=== PATIENT | female | born 1975 | race Caucasian/White ===

== ENCOUNTER 2017-07-20 11:30 | Outpatient (CLI) | payer MEDICAID ==
[~2017-07-20 11:30] MED LIST: ACET-2119 PO; HYDR-569 PO; LEVO500T2 PO; PANT-47 PO
[2017-07-20] MEDS ORDERED: LIDOcaine 2% 5ml jelly ONE (11:51)
[2017-07-20] MEDS ORDERED: ACET-1059 (12:18)
== END 2017-07-20 12:35 | disposition home or self-care (01) ==
LOC: WOUND CARE 11:30
PROVIDERS: ATTEND Surgery
DX: T81.89XD Other complications of procedures, not elsewhere classified, subsequent encounter (principal); L98.491 Non-pressure chronic ulcer of skin of other sites limited to breakdown of skin; I10 Essential (primary) hypertension; K21.9 Gastro-esophageal reflux disease without esophagitis; F19.10 Other psychoactive substance abuse, uncomplicated; Z90.49 Acquired absence of other specified parts of digestive tract; Z79.01 Long term (current) use of anticoagulants; Z79.899 Other long term (current) drug therapy; Y83.8 Other surgical procedures as the cause of abnormal reaction of the patient, or of later complication, without mention of misadventure at the time of the procedure
CPT/HCPCS: 99215; A6212; A6266

== ENCOUNTER 2017-07-24 09:46 | Day surgery (SDC) | payer MEDICAID ==
[~2017-07-24 09:46] MED LIST changes: +ACET-1059; -HYDR-569 PO
[2017-07-24] MEDS ORDERED: LIDOcaine 2% 5ml jelly ONE (11:22)
[2017-07-24] MEDS ORDERED: HYDR-569 PO (16:00)
== END 2017-07-24 11:57 | disposition home or self-care (01) ==
LOC: WOUND CARE 09:46
PROVIDERS: ATTEND Surgery
DX: T81.89XD Other complications of procedures, not elsewhere classified, subsequent encounter (principal); I10 Essential (primary) hypertension; K21.9 Gastro-esophageal reflux disease without esophagitis; F19.10 Other psychoactive substance abuse, uncomplicated; Z79.01 Long term (current) use of anticoagulants; Z79.899 Other long term (current) drug therapy; Z90.49 Acquired absence of other specified parts of digestive tract; Z86.718 Personal history of other venous thrombosis and embolism; Y83.8 Other surgical procedures as the cause of abnormal reaction of the patient, or of later complication, without mention of misadventure at the time of the procedure
CPT/HCPCS: 97597; A6212

== ENCOUNTER 2017-07-27 08:44 | Outpatient (CLI) | payer MEDICAID ==
[~2017-07-27 08:44] MED LIST changes: +HYDR-569 PO
[2017-07-27] MEDS ORDERED: LIDOcaine 2% 5ml jelly ONE (09:24)
== END 2017-07-27 09:35 | disposition home or self-care (01) ==
LOC: WOUND CARE 08:44 → EDSTATUS 09:00 → WOUND CARE 09:35
PROVIDERS: ATTEND Surgery
DX: T81.89XD Other complications of procedures, not elsewhere classified, subsequent encounter (principal); I10 Essential (primary) hypertension; K21.9 Gastro-esophageal reflux disease without esophagitis; F19.10 Other psychoactive substance abuse, uncomplicated; Z79.01 Long term (current) use of anticoagulants; Z79.899 Other long term (current) drug therapy; Z90.49 Acquired absence of other specified parts of digestive tract; Z86.718 Personal history of other venous thrombosis and embolism; Y83.8 Other surgical procedures as the cause of abnormal reaction of the patient, or of later complication, without mention of misadventure at the time of the procedure
CPT/HCPCS: 99211; A6206; A6212; A6266

== ENCOUNTER 2017-08-07 13:40 | Emergency (ER) | payer MEDICAID ==
[~2017-08-07] VITALS: Ht 167.6 cm; Wt 90.9 kg
[~2017-08-07 13:40] MED LIST changes: -LEVO500T2 PO
[2017-08-07 13:55] VITALS: BP 137/98
[2017-08-07] MEDS ORDERED: LEVO500T89 PO (16:05)
== END 2017-08-07 16:32 | disposition home or self-care (01) ==
LOC: ER 13:42
DX: L03.221 Cellulitis of neck (principal); I10 Essential (primary) hypertension; K21.9 Gastro-esophageal reflux disease without esophagitis; Z90.49 Acquired absence of other specified parts of digestive tract
CPT/HCPCS: 99283

== ENCOUNTER 2017-08-09 10:50 | Day surgery (SDC) | payer MEDICAID ==
[~2017-08-09 10:50] MED LIST changes: +LEVO500T89 PO
== END 2017-08-09 11:25 | disposition home or self-care (01) ==
LOC: WOUND CARE 10:50
PROVIDERS: ATTEND Surgery
DX: T81.89XD Other complications of procedures, not elsewhere classified, subsequent encounter (principal); L98.491 Non-pressure chronic ulcer of skin of other sites limited to breakdown of skin; I10 Essential (primary) hypertension; K21.9 Gastro-esophageal reflux disease without esophagitis; F19.10 Other psychoactive substance abuse, uncomplicated; Z79.01 Long term (current) use of anticoagulants; Z79.899 Other long term (current) drug therapy; Z90.49 Acquired absence of other specified parts of digestive tract; Z86.718 Personal history of other venous thrombosis and embolism; Y83.8 Other surgical procedures as the cause of abnormal reaction of the patient, or of later complication, without mention of misadventure at the time of the procedure
CPT/HCPCS: 17250; A6021; A6212

== ENCOUNTER 2017-08-17 11:34 | Day surgery (SDC) | payer MEDICAID ==
[~2017-08-17 11:34] MED LIST changes: -LEVO500T89 PO
[2017-08-17] MEDS ORDERED: LIDOcaine 2% 5ml jelly ONE (11:52)
== END 2017-08-17 12:09 | disposition home or self-care (01) ==
LOC: WOUND CARE 11:34
PROVIDERS: ATTEND Surgery
DX: T81.89XD Other complications of procedures, not elsewhere classified, subsequent encounter (principal); L98.491 Non-pressure chronic ulcer of skin of other sites limited to breakdown of skin; I10 Essential (primary) hypertension; K21.9 Gastro-esophageal reflux disease without esophagitis; F19.10 Other psychoactive substance abuse, uncomplicated; Z79.01 Long term (current) use of anticoagulants; Z79.899 Other long term (current) drug therapy; Z90.49 Acquired absence of other specified parts of digestive tract; Z86.718 Personal history of other venous thrombosis and embolism; Y83.8 Other surgical procedures as the cause of abnormal reaction of the patient, or of later complication, without mention of misadventure at the time of the procedure
CPT/HCPCS: 17250; A6021; A6212

== ENCOUNTER 2018-11-12 12:04 | Emergency (ER) | payer MEDICAID ==
[~2018-11-12 12:04] MED LIST changes: -ACET-2119 PO; +HYDR-4383 PO; -HYDR-569 PO
== END 2018-11-12 12:51 | disposition left against medical advice (07) ==
LOC: ER 12:04
DX: Z00.8 Encounter for other general examination (principal); Z53.21 Procedure and treatment not carried out due to patient leaving prior to being seen by health care provider

== ENCOUNTER 2019-03-26 19:09 | Emergency (ER) | payer MEDICAID ==
[~2019-03-26] VITALS: Ht 167.6 cm; Wt 72.7 kg
[2019-03-26 19:49] LABS: BASOPHILS # (AUTO) 0.1 X10'3 (0-0.2); BASOPHILS % (AUTO) 0.6 % (0-1); EOSINOPHILS % (AUTO) 0.1 % (0-6); HEMATOCRIT 30.4 % (35.0-45.0); LYMPHOCYTES # (AUTO) 0.9 X10'3 (1.1-4.8); LYMPHOCYTES % (AUTO) 9.9 % (21-51); MEAN CORPUSCULAR HEMOGLOBIN 25.5 PG (27.0-31.0); MEAN CORPUSCULAR HGB CONC 32.8 g/dL (33.0-36.5); MEAN CORPUSCULAR VOLUME 77.7 FL (78-98); MEAN PLATELET VOLUME 7.9 FL (7.4-10.4); MONOCYTES # (AUTO) 0.7 X10'3 (0-0.9); MONOCYTES % (AUTO) 7.9 % (2-12); NEUTROPHILS % (AUTO) 81.5 % (42-75); PLATELET COUNT 269 X10'3 (140-440); RED CELL DISTRIBUTION WIDTH 15.1 % (11.5-14.5); WHITE BLOOD COUNT 8.6 X10'3 (4.5-11.0)
[2019-03-26 19:59] LABS: ALANINE AMINOTRANSFERASE 14 U/L (12-78); ALBUMIN/GLOBULIN RATIO 0.8 (1.1-1.5); ALKALINE PHOSPHATASE 84 IU/L (46-116); ANION GAP 8 (8-16); ASPARTATE AMINO TRANSFERASE 8 U/L (10-37); BILIRUBIN,TOTAL 0.5 MG/DL (0.1-1.0); BLOOD UREA NITROGEN 11 MG/DL (7-18); BUN/CREATININE RATIO 19.6 (6.6-38.0); CALCIUM 8.3 MG/DL (8.5-10.1); CHLORIDE 105 MMOL/L (99-107); CREATININE 0.56 MG/DL (0.40-0.90); GLUCOSE 92 MG/DL (70-104); POTASSIUM 3.8 MMOL/L (3.5-5.1); SODIUM 141 MMOL/L (135-145); TOTAL CARBON DIOXIDE 28.2 MMOL/L (24-32); TOTAL PROTEIN 6.8 G/DL (6.4-8.2); eGFR > 90 ML/MIN
[2019-03-26 20:02] LABS: PARTIAL THROMBOPLASTIN TIME 27 SECONDS (22-32)
--- NOTE | 2019-03-26 20:37 | NUR ---
PT REPORTS SHE IS UNABLE TO URINATE, SHE WENT BEFORE SHE GOT HERE.
[2019-03-26 21:19] LABS: COLOR,URINE YELLOW (Yellow); GLUCOSE, URINE NEGATIVE (Neg); KETONES,URINE TRACE mg/dl (Neg); LEUKOCYTE ESTERASE ,URINE NEGATIVE (Neg); NITRITES, URINE NEGATIVE (Neg); OCCULT BLOOD,URINE LARGE (Neg); PH,URINE 7.5 (4.8-8.0); PROTEIN,URINE 30 mg/dl (Neg); UA COLLECTION TYPE CLN CATCH MIDSTREAM
[2019-03-26 21:20] LABS: CLARITY,URINE SLIGHTLY CLOUDY (Clear)
[2019-03-26 21:28] LABS: BACTERIA,URINE 2+ /HPF (Neg); MUCUS STRANDS MODERATE /LPF (Neg); SQUAMOUS EPITHELIAL CELL,UR MODERATE /LPF (FEW)
[2019-03-26] MEDS ORDERED: HYDROcodone/acetaminophen 5mg/325mg tablet PO ONE (21:45)
[2019-03-26] MEDS ORDERED: iohexol 300mg/ml 100ml inj. ONE (21:50)
[2019-03-26] MEDS ORDERED: vancomycin/NS 1 GM ADD-VANTAGE 250 ML IV ONE (23:45)
[2019-03-26] MEDS ORDERED: piperacillin/tazo 3.375gm/50ml 50 ML IV ONE (23:45)
[2019-03-27] MEDS ORDERED: HYDROcodone/acetaminophen 5mg/325mg tablet PO ONE (00:35)
[2019-03-27] MEDS ORDERED: ondansetron 4mg rapidly disintigrating tab PO ONE (00:35)
--- NOTE | 2019-03-27 01:38 | NUR ---
PT NOTICED RED AND SMALL WELTS FORMING AROUND HER IV SITE WITH ITCHINESS, NO SOB OR THROAT SWELLING. JB PA AWARE AND ORDERED BENADRYL AND TO TURN DOWN VANCO TO SLOWER RATE. WILL CONTINUE TO MONITOR
[2019-03-27] MEDS ORDERED: diphenhydrAMINE 25mg capsule PO ONE (02:00)
[2019-03-27 02:54] VITALS: BP 124/88
== END 2019-03-27 02:57 | disposition left against medical advice (07) ==
LOC: ER 19:09
DX: L02.413 Cutaneous abscess of right upper limb (principal); F19.10 Other psychoactive substance abuse, uncomplicated; I10 Essential (primary) hypertension; K21.9 Gastro-esophageal reflux disease without esophagitis; F15.90 Other stimulant use, unspecified, uncomplicated; F11.90 Opioid use, unspecified, uncomplicated; Z59.0 Homelessness; Z90.49 Acquired absence of other specified parts of digestive tract; Z86.718 Personal history of other venous thrombosis and embolism; Z88.5 Allergy status to narcotic agent; Z88.1 Allergy status to other antibiotic agents; Z79.899 Other long term (current) drug therapy
CPT/HCPCS: 36415; 73201; 80053; 81001; 83605; 84145; 85025; 85610; 85730; 87040; 87077; 87088; 87186; 87210; 96365; 96367; 99284; J2543; J3370; Q9967

== ENCOUNTER 2019-03-31 19:31 | Inpatient (IN) | payer MEDICAID ==
[~2019-03-31] VITALS: Ht 167.6 cm; Wt 66.0 kg
[2019-03-31 20:20] LABS: BASOPHILS # (AUTO) 0.1 X10'3 (0-0.2); BASOPHILS % (AUTO) 0.7 % (0-1); EOSINOPHILS % (AUTO) 0.5 % (0-6); HEMATOCRIT 26.6 % (35.0-45.0); HEMOGLOBIN 8.7 g/dl (12.0-16.0); LYMPHOCYTES % (AUTO) 11.6 % (21-51); MEAN CORPUSCULAR HEMOGLOBIN 25.6 PG (27.0-31.0); MEAN CORPUSCULAR HGB CONC 32.8 g/dL (33.0-36.5); MEAN CORPUSCULAR VOLUME 77.9 FL (78-98); MEAN PLATELET VOLUME 7.3 FL (7.4-10.4); MONOCYTES # (AUTO) 0.7 X10'3 (0-0.9); MONOCYTES % (AUTO) 8.7 % (2-12); NEUTROPHILS # (AUTO) 6.4 X10'3 (1.8-7.7); NEUTROPHILS % (AUTO) 78.5 % (42-75); PLATELET COUNT 398 X10'3 (140-440); RED BLOOD COUNT 3.41 X10'6 (4.20-5.60); RED CELL DISTRIBUTION WIDTH 15.3 % (11.5-14.5); WHITE BLOOD COUNT 8.2 X10'3 (4.5-11.0)
[2019-03-31 20:26] LABS: PARTIAL THROMBOPLASTIN TIME 29 SECONDS (22-32)
[2019-03-31 20:28] LABS: ALANINE AMINOTRANSFERASE 22 U/L (12-78); ALBUMIN 2.6 G/DL (3.4-5.0); ALBUMIN/GLOBULIN RATIO 0.6 (1.1-1.5); ALKALINE PHOSPHATASE 90 IU/L (46-116); ANION GAP 7 (8-16); ASPARTATE AMINO TRANSFERASE 25 U/L (10-37); BILIRUBIN,TOTAL 0.4 MG/DL (0.1-1.0); BLOOD UREA NITROGEN 8 MG/DL (7-18); BUN/CREATININE RATIO 12.9 (6.6-38.0); CALCIUM 9.1 MG/DL (8.5-10.1); CHLORIDE 103 MMOL/L (99-107); CREATININE 0.62 MG/DL (0.40-0.90); GLUCOSE 101 MG/DL (70-104); POTASSIUM 3.7 MMOL/L (3.5-5.1); SODIUM 139 MMOL/L (135-145); TOTAL CARBON DIOXIDE 28.7 MMOL/L (24-32); eGFR > 90 ML/MIN
[2019-03-31] MEDS ORDERED: morphine 4 MG/ML inj SYRINge IV ONE (21:40)
[2019-03-31] MEDS ORDERED: piperacillin/tazo 3.375gm/50ml 50 ML IV ONE (21:40)
[2019-03-31] MEDS ORDERED: pantoprazole 40 MG vial IV ONE (21:45)
[2019-03-31] MEDS ORDERED: magnesium hydroxide 30ml (MOM) UD suspension PO PRN (22:10)
[2019-03-31] MEDS ORDERED: acetaminophen 325mg tablet PO PRN (22:10)
[2019-03-31] MEDS ORDERED: morphine 2 MG/ML inj. syringe IV PRN (22:10)
[2019-03-31] MEDS ORDERED: ondansetron/PF 4mg/2ml inj IV PRN (22:10)
[2019-03-31] MEDS ORDERED: vancomycin/NS 1 GM ADD-VANTAGE 250 ML X 1 DOSE IV ONE (22:20)
[2019-03-31 22:38] LABS: CLARITY,URINE CLEAR (Clear); COLOR,URINE YELLOW (Yellow); GLUCOSE, URINE NEGATIVE (Neg); KETONES,URINE TRACE mg/dl (Neg); LEUKOCYTE ESTERASE ,URINE NEGATIVE (Neg); NITRITES, URINE NEGATIVE (Neg); OCCULT BLOOD,URINE NEGATIVE (Neg); PROTEIN,URINE TRACE mg/dl (Neg)
[2019-03-31] MEDS: normal saline 1000ml 1,000 ML IV SCH (22:47)
[2019-03-31 22:49] LABS: UA COLLECTION TYPE CLN CATCH MIDSTREAM
[2019-03-31 22:50] LABS: BACTERIA,URINE FEW /HPF (Neg); CAL OXALATE CRYSTALS FEW /HPF (NEGATIVE); MUCUS STRANDS FEW /LPF (Neg); RBC,URINE NONE SEEN /HPF (0-2); SQUAMOUS EPITHELIAL CELL,UR FEW /LPF (FEW); WBC,URINE 0-4 /HPF (0-4)
[2019-04-01] VITALS (11 sets, daily range): BP systolic 100–131; BP diastolic 60–81
--- NOTE | 2019-04-01 00:30 | NUR ---
Received report from [employer] SUPERVISORTAMIE Cornell. Patient to follow shortly.
--- NOTE | 2019-04-01 00:30 | NUR ---
Patient arrived via W/C. Patient is A&O, settled into bed and 2 RN skin check performed.
[2019-04-01] MEDS ORDERED: diphenhydrAMINE 25mg capsule PO PRN (00:55)
[2019-04-01] MEDS: mag hydrox/Alum hydrox/simeth 30ml oral suspension PO PRN (01:23)
[2019-04-01] MEDS: piperacillin/tazo 3.375gm/50ml 50 ML IV SCH ×3 (05:05→22:04)
[2019-04-01] MEDS: morphine 2 MG/ML inj. syringe IV PRN ×3 (05:13→20:20)
[2019-04-01] MEDS ORDERED: vancomycin/NS 1 GM ADD-VANTAGE 250 ML IV SCH (06:00)
[2019-04-01 06:12] LABS: BASOPHILS % (AUTO) 0.5 % (0-1); EOSINOPHILS # (AUTO) 0.1 X10'3 (0-0.9); EOSINOPHILS % (AUTO) 0.8 % (0-6); HEMATOCRIT 23.6 % (35.0-45.0); HEMOGLOBIN 7.8 g/dl (12.0-16.0); LYMPHOCYTES # (AUTO) 1.2 X10'3 (1.1-4.8); LYMPHOCYTES % (AUTO) 13.6 % (21-51); MEAN CORPUSCULAR HEMOGLOBIN 25.9 PG (27.0-31.0); MEAN CORPUSCULAR VOLUME 78.5 FL (78-98); MEAN PLATELET VOLUME 7.8 FL (7.4-10.4); MONOCYTES # (AUTO) 0.5 X10'3 (0-0.9); MONOCYTES % (AUTO) 6.3 % (2-12); NEUTROPHILS # (AUTO) 6.9 X10'3 (1.8-7.7); NEUTROPHILS % (AUTO) 78.8 % (42-75); PLATELET COUNT 317 X10'3 (140-440); WHITE BLOOD COUNT 8.8 X10'3 (4.5-11.0)
--- NOTE | 2019-04-01 06:30 | NUR ---
Report given to Asha WILLETT.
--- NOTE | 2019-04-01 06:30 | NUR ---
Patient in room DANNIE 349. I have received report from TAMIE Alcantara and had the opportunity to ask questions and assume patient care.
[2019-04-01 06:48] LABS: ALANINE AMINOTRANSFERASE 20 U/L (12-78); ALBUMIN 2.2 G/DL (3.4-5.0); ALBUMIN/GLOBULIN RATIO 0.6 (1.1-1.5); ALKALINE PHOSPHATASE 80 IU/L (46-116); ANION GAP 7 (8-16); ASPARTATE AMINO TRANSFERASE 17 U/L (10-37); BILIRUBIN,TOTAL 0.3 MG/DL (0.1-1.0); BLOOD UREA NITROGEN 6 MG/DL (7-18); BUN/CREATININE RATIO 12.2 (6.6-38.0); CALCIUM 7.5 MG/DL (8.5-10.1); CHLORIDE 106 MMOL/L (99-107); CREATININE 0.49 MG/DL (0.40-0.90); GLUCOSE 84 MG/DL (70-104); POTASSIUM 3.7 MMOL/L (3.5-5.1); SODIUM 141 MMOL/L (135-145); TOTAL CARBON DIOXIDE 28.5 MMOL/L (24-32); eGFR > 90 ML/MIN
[2019-04-01] MEDS ORDERED: pantoprazole 40mg Tablet.DR PO SCH (07:30)
[2019-04-01] MEDS: heparin, porcine 5000 units/ml vial SQ SCH ×2 (08:00→20:18)
[2019-04-01] MEDS: lactobacillus rhamnosus 10,000 MMU CELLS/CAPSULE PO SCH ×2 (08:42→20:15)
[2019-04-01] MEDS: normal saline 1000ml 1,000 ML IV SCH (12:00)
--- NOTE | 2019-04-01 12:46 | NUR ---
PAGER ID: [phone] MESSAGE: [facility] [phone] Re: Abhay 349B blood sugar is 68 would like hypoglycemic protocol and maybe change fluids to have D5 please call
--- NOTE | 2019-04-01 13:00 | NUR ---
Notified Gopal antunez RN that paged Dr jarquin regarding patients blood sugar being 68 still no response. She will continue with notifying
[2019-04-01] MEDS: dextrose 5%-water 1,000 ML IV SCH (13:27)
[2019-04-01] MEDS ORDERED: ringers solution, lacted 1,000 ML IV SCH (13:53)
[2019-04-01] MEDS ORDERED: fentaNYL/PF 50MCG/1 ML 2ML syringe IV PRN ×2 (13:55)
[2019-04-01] MEDS ORDERED: ondansetron/PF 4mg/2ml inj IV PRN (13:55)
[2019-04-01] MEDS ORDERED: morphine 4 MG/ML inj SYRINge IV PRN ×2 (13:55)
[2019-04-01] MEDS ORDERED: hydrALAZINE 20mg/ml inj. IV PRN (13:55)
[2019-04-01] MEDS ORDERED: labetalol 20mg/4ml (5mg/ml) syringe IV PRN (13:55)
--- NOTE | 2019-04-01 13:55 | NUR ---
Called report to recovery and TAMIE Treviño states she will call back for report.
[2019-04-01] MEDS ORDERED: BUPIVAcaine/PF 2.5 mg/ml (0.25%) 30ml vial ONE (13:56)
[2019-04-01] MEDS ORDERED: ceFAZolin 1000mg inj ONE (14:17)
[2019-04-01] MEDS ORDERED: dexamethasone sod phosphate 10mg/ml inj ONE (14:22)
[2019-04-01] MEDS ORDERED: sevoflurane 250ml liquid IH ONE (14:22)
[2019-04-01] MEDS ORDERED: fentaNYL/PF 50MCG/1 ML 2ML syringe ONE (14:47)
[2019-04-01] MEDS ORDERED: midazolam 2 mg/2 ml injection ONE (14:48)
[2019-04-01] MEDS ORDERED: ondansetron/PF 4mg/2ml inj ONE (14:49)
[2019-04-01] MEDS ORDERED: LIDOcaine 2% (20mg/ml) 5ml vial ONE (14:50)
[2019-04-01] MEDS ORDERED: propofol inj 20 ML IV ONE (14:50)
--- NOTE | 2019-04-01 15:00 | NUR ---
ADMITTED TO PACU FROM OR ACCOMPANIED BY ANESTHESIA. INTIAL PHYSICAL ASSESSMENT DONE AND RECORDED. AWAKE AND RESPONSE ON ARRIVE YO PACU, REPORT RECEIVED FROM ANESTHESIA.
--- NOTE | 2019-04-01 15:45 | NUR ---
Discharge criteria met, discharge instructions given, demonstrates verbal understanding. Discharged home in good condition.
--- NOTE | 2019-04-01 16:04 | NUR ---
Received patient from recovery. Patient reports minimal pain, HR 76, BP 103/73, O2 96% RR 16. will continue to monitor.
[2019-04-01] MEDS: vancomycin/NS 1 GM ADD-VANTAGE 250 ML IV SCH (17:16)
--- NOTE | 2019-04-01 18:46 | NUR ---
Problems reprioritized. Patient report given, questions answered & plan of care reviewed with TAMIE Carias.
[2019-04-02] VITALS: BP 106/68
[2019-04-02] MEDS: morphine 2 MG/ML inj. syringe IV PRN ×5 (00:50→22:06)
[2019-04-02] MEDS: mag hydrox/Alum hydrox/simeth 30ml oral suspension PO PRN ×3 (00:54→17:15)
[2019-04-02] MEDS: dextrose 5%-water 1,000 ML IV SCH ×3 (01:48→20:46)
[2019-04-02] MEDS: vancomycin/NS 1 GM ADD-VANTAGE 250 ML IV SCH ×2 (04:49→17:43)
[2019-04-02 04:55] LABS: BASOPHILS % (AUTO) 0.3 % (0-1); EOSINOPHILS % (AUTO) 0 % (0-6); HEMATOCRIT 24.9 % (35.0-45.0); HEMOGLOBIN 8.2 g/dl (12.0-16.0); LYMPHOCYTES # (AUTO) 0.5 X10'3 (1.1-4.8); LYMPHOCYTES % (AUTO) 7.8 % (21-51); MEAN CORPUSCULAR HEMOGLOBIN 25.4 PG (27.0-31.0); MEAN CORPUSCULAR HGB CONC 32.8 g/dL (33.0-36.5); MEAN CORPUSCULAR VOLUME 77.6 FL (78-98); MEAN PLATELET VOLUME 7.8 FL (7.4-10.4); MONOCYTES # (AUTO) 0.4 X10'3 (0-0.9); MONOCYTES % (AUTO) 5.8 % (2-12); NEUTROPHILS # (AUTO) 5.6 X10'3 (1.8-7.7); NEUTROPHILS % (AUTO) 86.1 % (42-75); PLATELET COUNT 391 X10'3 (140-440); RED BLOOD COUNT 3.21 X10'6 (4.20-5.60); WHITE BLOOD COUNT 6.5 X10'3 (4.5-11.0)
[2019-04-02 05:21] LABS: ALANINE AMINOTRANSFERASE 22 U/L (12-78); ALBUMIN 2.1 G/DL (3.4-5.0); ALBUMIN/GLOBULIN RATIO 0.5 (1.1-1.5); ALKALINE PHOSPHATASE 92 IU/L (46-116); ANION GAP 7 (8-16); ASPARTATE AMINO TRANSFERASE 19 U/L (10-37); BILIRUBIN,TOTAL 0.2 MG/DL (0.1-1.0); BLOOD UREA NITROGEN 13 MG/DL (7-18); CALCIUM 8.5 MG/DL (8.5-10.1); CHLORIDE 104 MMOL/L (99-107); CREATININE 0.62 MG/DL (0.40-0.90); GLUCOSE 164 MG/DL (70-104); POTASSIUM 4.3 MMOL/L (3.5-5.1); SODIUM 141 MMOL/L (135-145); TOTAL PROTEIN 6.2 G/DL (6.4-8.2); eGFR > 90 ML/MIN
[2019-04-02 05:34] LABS: % IRON SATURATION 9 % (11-46); IRON 21 UG/DL (49-151); TOTAL IRON BINDING CAPACITY 226 UG/DL (259-388)
--- NOTE | 2019-04-02 06:34 | NUR ---
Problems reprioritized. Patient report given, questions answered & plan of care reviewed with TAMIE Barry.
--- NOTE | 2019-04-02 06:34 | NUR ---
Patient in room DANNIE 349. I have received report from TAMIE Carias and had the opportunity to ask questions and assume patient care.
[2019-04-02 07:00] VITALS: BP 120/77
[2019-04-02] MEDS: lactobacillus rhamnosus 10,000 MMU CELLS/CAPSULE PO SCH ×2 (07:38→19:33)
[2019-04-02] MEDS: piperacillin/tazo 3.375gm/50ml 50 ML IV SCH ×2 (07:38→13:25)
[2019-04-02] MEDS: heparin, porcine 5000 units/ml vial SQ SCH ×2 (07:39→19:33)
[2019-04-02] MEDS: iron sucrose complex injection 200 MG in normal saline 100ml IV soln 100 ML IV SCH (10:21)
[2019-04-02 11:00] VITALS: BP 110/68
[2019-04-02] MEDS ORDERED: hydrOXYzine 25 MG tablet PO PRN ×2 (14:00→14:45)
[2019-04-02] MEDS ORDERED: VANCOMYCIN LEVEL IV ONE (16:30)
[2019-04-02 18:00] VITALS: BP 102/74
[2019-04-02 18:02] LABS: CREATINE KINASE 19 U/L (26-192); HIV ANTIBODY 1&2 RAPID NON-REACTIVE (Neg)
--- NOTE | 2019-04-02 18:35 | NUR ---
Problems reprioritized. Patient report given, questions answered & plan of care reviewed with TAMIE Carias.
--- NOTE | 2019-04-02 18:51 | NUR ---
Patient in room DANNIE 349. I have received report from TAMIE Bailey and had the opportunity to ask questions and assume patient care.
[2019-04-02] MEDS: triamcinolone acet 0.1% cream 15gm TP SCH (19:34)
[2019-04-02] MEDS: HYDROcodone/acetaminophen 5mg/325mg tablet PO PRN (20:44)
[2019-04-03] VITALS: BP 165/76
[2019-04-03] MEDS: HYDROcodone/acetaminophen 5mg/325mg tablet PO PRN ×3 (03:21→17:54)
[2019-04-03] MEDS: morphine 2 MG/ML inj. syringe IV PRN ×4 (03:24→20:15)
[2019-04-03] MEDS: vancomycin/NS 1 GM ADD-VANTAGE 250 ML IV SCH ×4 (04:59→23:54)
[2019-04-03 05:45] LABS: ALANINE AMINOTRANSFERASE 22 U/L (12-78); ALBUMIN 2.1 G/DL (3.4-5.0); ALBUMIN/GLOBULIN RATIO 0.5 (1.1-1.5); ALKALINE PHOSPHATASE 87 IU/L (46-116); ANION GAP 7 (8-16); ASPARTATE AMINO TRANSFERASE 16 U/L (10-37); BILIRUBIN,TOTAL 0.1 MG/DL (0.1-1.0); BLOOD UREA NITROGEN 13 MG/DL (7-18); BUN/CREATININE RATIO 23.6 (6.6-38.0); CALCIUM 8.5 MG/DL (8.5-10.1); CHLORIDE 104 MMOL/L (99-107); CREATININE 0.55 MG/DL (0.40-0.90); GLUCOSE 88 MG/DL (70-104); POTASSIUM 4.3 MMOL/L (3.5-5.1); SODIUM 138 MMOL/L (135-145); TOTAL CARBON DIOXIDE 27.3 MMOL/L (24-32); TOTAL PROTEIN 6.3 G/DL (6.4-8.2); eGFR > 90 ML/MIN
[2019-04-03 05:48] LABS: BASOPHILS # (AUTO) 0.1 X10'3 (0-0.2); BASOPHILS % (AUTO) 1.2 % (0-1); EOSINOPHILS % (AUTO) 0.7 % (0-6); HEMATOCRIT 27.8 % (35.0-45.0); HEMOGLOBIN 9.1 g/dl (12.0-16.0); LYMPHOCYTES % (AUTO) 28.5 % (21-51); MEAN CORPUSCULAR HEMOGLOBIN 25.7 PG (27.0-31.0); MEAN CORPUSCULAR HGB CONC 32.7 g/dL (33.0-36.5); MEAN CORPUSCULAR VOLUME 78.5 FL (78-98); MEAN PLATELET VOLUME 8.1 FL (7.4-10.4); MONOCYTES # (AUTO) 0.6 X10'3 (0-0.9); NEUTROPHILS # (AUTO) 4.3 X10'3 (1.8-7.7); NEUTROPHILS % (AUTO) 60.6 % (42-75); PLATELET COUNT 453 X10'3 (140-440); RED BLOOD COUNT 3.54 X10'6 (4.20-5.60); RED CELL DISTRIBUTION WIDTH 14.9 % (11.5-14.5)
[2019-04-03] MEDS: dextrose 5%-water 1,000 ML IV SCH ×3 (05:59→23:54)
--- NOTE | 2019-04-03 06:30 | NUR ---
Problems reprioritized. Patient report given, questions answered & plan of care reviewed with TAMIE Barry.
[2019-04-03 07:23] VITALS: BP 109/76
[2019-04-03] MEDS: lactobacillus rhamnosus 10,000 MMU CELLS/CAPSULE PO SCH ×2 (07:38→20:18)
[2019-04-03] MEDS: triamcinolone acet 0.1% cream 15gm TP SCH ×2 (07:47→20:18)
[2019-04-03] MEDS: heparin, porcine 5000 units/ml vial SQ SCH ×2 (07:48→20:17)
[2019-04-03] MEDS: iron sucrose complex injection 200 MG in normal saline 100ml IV soln 100 ML IV SCH (09:30)
[2019-04-03 11:30] VITALS: BP 120/75
[2019-04-03] MEDS: pantoprazole 40mg Tablet.DR PO SCH (13:40)
[2019-04-03] MEDS: mag hydrox/Alum hydrox/simeth 30ml oral suspension PO PRN (14:59)
--- NOTE | 2019-04-03 18:39 | NUR ---
Problems reprioritized. Patient report given, questions answered & plan of care reviewed with KAREN RN.
[2019-04-03 19:30] VITALS: BP 120/73
[2019-04-04] VITALS: BP 110/67
[2019-04-04] MEDS: HYDROcodone/acetaminophen 5mg/325mg tablet PO PRN ×2 (00:04→08:28)
[2019-04-04] MEDS: morphine 2 MG/ML inj. syringe IV PRN (03:17)
[2019-04-04 06:30] VITALS: BP 113/72
--- NOTE | 2019-04-04 07:05 | NUR ---
Patient in room DANNIE 349. I have received report from TAMIE Jeronimo and had the opportunity to ask questions and assume patient care.
[2019-04-04] MEDS ORDERED: VANCOMYCIN LEVEL IV ONE (07:30)
[2019-04-04] MEDS: triamcinolone acet 0.1% cream 15gm TP SCH (08:00)
[2019-04-04 08:27] LABS: BASOPHILS # (AUTO) 0.1 X10'3 (0-0.2); BASOPHILS % (AUTO) 1.3 % (0-1); EOSINOPHILS # (AUTO) 0.1 X10'3 (0-0.9); EOSINOPHILS % (AUTO) 0.9 % (0-6); HEMATOCRIT 32.1 % (35.0-45.0); HEMOGLOBIN 10.5 g/dl (12.0-16.0); LYMPHOCYTES # (AUTO) 1.3 X10'3 (1.1-4.8); LYMPHOCYTES % (AUTO) 20.9 % (21-51); MEAN CORPUSCULAR HEMOGLOBIN 25.5 PG (27.0-31.0); MEAN CORPUSCULAR HGB CONC 32.8 g/dL (33.0-36.5); MEAN CORPUSCULAR VOLUME 77.7 FL (78-98); MEAN PLATELET VOLUME 7.2 FL (7.4-10.4); MONOCYTES # (AUTO) 0.6 X10'3 (0-0.9); MONOCYTES % (AUTO) 9.2 % (2-12); NEUTROPHILS # (AUTO) 4.2 X10'3 (1.8-7.7); NEUTROPHILS % (AUTO) 67.7 % (42-75); PLATELET COUNT 543 X10'3 (140-440); RED BLOOD COUNT 4.13 X10'6 (4.20-5.60); WHITE BLOOD COUNT 6.1 X10'3 (4.5-11.0)
[2019-04-04] MEDS: vancomycin/NS 1 GM ADD-VANTAGE 250 ML IV SCH (08:27)
[2019-04-04] MEDS: pantoprazole 40mg Tablet.DR PO SCH (08:27)
[2019-04-04] MEDS: lactobacillus rhamnosus 10,000 MMU CELLS/CAPSULE PO SCH (08:27)
[2019-04-04] MEDS: heparin, porcine 5000 units/ml vial SQ SCH (08:27)
[2019-04-04 08:41] LABS: ALANINE AMINOTRANSFERASE 20 U/L (12-78); ALBUMIN 2.6 G/DL (3.4-5.0); ALBUMIN/GLOBULIN RATIO 0.6 (1.1-1.5); ALKALINE PHOSPHATASE 105 IU/L (46-116); ANION GAP 3 (8-16); ASPARTATE AMINO TRANSFERASE 9 U/L (10-37); BILIRUBIN,TOTAL 0.2 MG/DL (0.1-1.0); BLOOD UREA NITROGEN 8 MG/DL (7-18); BUN/CREATININE RATIO 13.3 (6.6-38.0); CALCIUM 8.8 MG/DL (8.5-10.1); CHLORIDE 102 MMOL/L (99-107); GLUCOSE 97 MG/DL (70-104); POTASSIUM 4.4 MMOL/L (3.5-5.1); SODIUM 138 MMOL/L (135-145); TOTAL CARBON DIOXIDE 32.7 MMOL/L (24-32); TOTAL PROTEIN 7.3 G/DL (6.4-8.2); VANCOMYCIN,TROUGH 11.6 UG/ML (6.0-14.0); eGFR > 90 ML/MIN
[2019-04-04 09:29] LABS: GIANT PLATELET FEW; LARGE PLATELETS FEW; MICROCYTOSIS 1+; PLATELET ESTIMATE INCREASED; SCHISTOCYTES FEW
--- NOTE | 2019-04-04 10:19 | NUR ---
Initial: Pt admit with abscess to right arm secondary to IV methamphetamines and heroin abuse. Pt now s/p I&D and continues with abx tx per MD notes. Pt currently on regular diet documented with 75-100% PO intake meeting nutrient needs. [facility] 04/03. No nutrition diagnosis at this time. Will continue to follow. Recommendations: 1) Continue regular diet 2) Wt per rx Addendum: 04/04/19 at [address] Amended: Links added.
[2019-04-04] MEDS: iron sucrose complex injection 200 MG in normal saline 100ml IV soln 100 ML IV SCH (10:20)
[2019-04-04 11:00] VITALS: BP 120/76
[2019-04-04] MEDS: dextrose 5%-water 1,000 ML IV SCH (11:05)
[2019-04-04] MEDS ORDERED: DOXY-224 PO (12:34)
[2019-04-04] MEDS ORDERED: PANT-47 PO (12:49)
--- NOTE | 2019-04-04 14:20 | NUR ---
DC inst provided to pt. IV DC'd, tip intact. All belongings sent w/pt. PCT ambulated pt to front lobby.
[2019-04-04] MEDS ORDERED: VANCOmycin 1250MG/NS 250ml Bag 250 ML IV SCH (16:00)
[2019-04-04] MEDS ORDERED: DOXYCYCLINE 100MG CAPSULE PO SCH (17:30)
[2019-04-05] MEDS ORDERED: VANCOMYCIN LEVEL IV ONE (15:30)
== END 2019-04-04 14:20 | disposition home or self-care (01) | DRG 383 ==
LOC: ER 19:32 → ED HOLD 22:47 → SUR 3N 04-01 01:03
PROVIDERS: ADMIT Internal Medicine; ATTEND Family Medicine
PROC: 0H9BXZZ Drainage of Right Upper Arm Skin, External Approach (ICD-10-PCS; principal; 2019-04-01 14:22)
DX: L02.413 Cutaneous abscess of right upper limb (principal); B18.2 Chronic viral hepatitis C; D50.9 Iron deficiency anemia, unspecified; F11.10 Opioid abuse, uncomplicated; F15.10 Other stimulant abuse, uncomplicated; I10 Essential (primary) hypertension; K21.9 Gastro-esophageal reflux disease without esophagitis; M60.821 Other myositis, right upper arm; R01.1 Cardiac murmur, unspecified; Z59.0 Homelessness; Z88.5 Allergy status to narcotic agent; Z88.1 Allergy status to other antibiotic agents; Z90.49 Acquired absence of other specified parts of digestive tract; Z79.899 Other long term (current) drug therapy
CPT/HCPCS: 36415; 71045; 73060; 76937; 80053; 80202; 81001; 82550; 82948; 83540; 83550; 83605; 83874; 84145; 85025; 85610; 85730; 86703; 87040; 87070; 87075; 87081; 93005; 96374; 96375; 99285; A4215; A4618; A6222; A6446; A6449; A7000; C9113; G0378; J0690; J1100; J1644; J1756; J2001; J2250; J2270; J2405; J2543; J2704; J3010; J3370; J3490; J7030; J7070; J7120; Q0163; Z7610

== ENCOUNTER 2020-01-11 21:04 | Inpatient (IN) | payer MEDICAID ==
[~2020-01-11] VITALS: Ht 167.6 cm; Wt 70.5 kg
[~2020-01-11 21:04] MED LIST changes: +DOXY-224 PO
[2020-01-11] MEDS ORDERED: acetaminophen 325mg tablet PO ONE (21:10)
[2020-01-11] MEDS ORDERED: vancomycin/NS 1 GM ADD-VANTAGE 250 ML IV ONE (22:00)
[2020-01-11] MEDS ORDERED: CefTRIAXone/D5W-Rocephin 1gm 50 ML IV ONE (22:00)
[2020-01-11] MEDS ORDERED: normal saline 1000ML IV soln IV ONE (22:00)
[2020-01-11 22:01] LABS: BASOPHILS # (AUTO) 0.1 X10'3 (0-0.2); EOSINOPHILS % (AUTO) 0.1 % (0-6); HEMATOCRIT 30.9 % (35.0-45.0); HEMOGLOBIN 9.8 g/dl (12.0-16.0); LYMPHOCYTES # (AUTO) 0.9 X10'3 (1.1-4.8); LYMPHOCYTES % (AUTO) 8.4 % (21-51); MEAN CORPUSCULAR HEMOGLOBIN 24.7 PG (27.0-31.0); MEAN CORPUSCULAR HGB CONC 31.7 g/dL (33.0-36.5); MEAN CORPUSCULAR VOLUME 77.7 FL (78-98); MEAN PLATELET VOLUME 7.9 FL (7.4-10.4); MONOCYTES # (AUTO) 0.8 X10'3 (0-0.9); MONOCYTES % (AUTO) 7.3 % (2-12); NEUTROPHILS # (AUTO) 9.2 X10'3 (1.8-7.7); NEUTROPHILS % (AUTO) 83.2 % (42-75); PLATELET COUNT 304 X10'3 (140-440); RED BLOOD COUNT 3.98 X10'6 (4.20-5.60); RED CELL DISTRIBUTION WIDTH 14.2 % (11.5-14.5)
[2020-01-11 22:12] LABS: PARTIAL THROMBOPLASTIN TIME 31 SECONDS (22-32)
[2020-01-11 22:13] LABS: ALBUMIN 3.1 G/DL (3.4-5.0); ALBUMIN/GLOBULIN RATIO 0.7 (1.1-1.5); ANION GAP 9 (8-16); ASPARTATE AMINO TRANSFERASE 14 U/L (10-37); BILIRUBIN,TOTAL 0.6 MG/DL (0.1-1.0); BLOOD UREA NITROGEN 9 MG/DL (7-18); BUN/CREATININE RATIO 9.8 (6.6-38.0); CALCIUM 8.1 MG/DL (8.5-10.1); CHLORIDE 98 MMOL/L (99-107); CREATININE 0.92 MG/DL (0.40-0.90); GLUCOSE 99 MG/DL (70-104); POTASSIUM 3.1 MMOL/L (3.5-5.1); SODIUM 134 MMOL/L (135-145); TOTAL CARBON DIOXIDE 27.3 MMOL/L (24-32); TOTAL PROTEIN 7.8 G/DL (6.4-8.2); eGFR 66 ML/MIN
[2020-01-11 22:14] LABS: ALANINE AMINOTRANSFERASE 17 U/L (12-78); ALKALINE PHOSPHATASE 87 IU/L (46-116)
[2020-01-11] MEDS ORDERED: morphine 10mg/ml inj. IV ONE (22:15)
[2020-01-11] MEDS ORDERED: ketorolac trometh. 30mg/ml inj. IV ONE (22:30)
[2020-01-11] MEDS ORDERED: PANT-47 PO (23:00)
[2020-01-11] MEDS ORDERED: ondansetron/PF 4mg/2ml inj IV PRN (23:25)
[2020-01-11] MEDS ORDERED: magnesium hydroxide 30ml (MOM) UD suspension PO PRN (23:25)
[2020-01-11] MEDS ORDERED: acetaminophen 325mg tablet PO PRN (23:25)
[2020-01-12 00:23] LABS: URINE HCG NEGATIVE (NEG)
[2020-01-12 00:25] LABS: CLARITY,URINE CLOUDY (Clear); COLOR,URINE AMBER (Yellow); GLUCOSE, URINE NEGATIVE (Neg); KETONES,URINE NEGATIVE (Neg); LEUKOCYTE ESTERASE ,URINE MODERATE (Neg); NITRITES, URINE POSITIVE (Neg); OCCULT BLOOD,URINE TRACE-INTACT (Neg); PROTEIN,URINE 100 mg/dl (Neg)
[2020-01-12 00:28] LABS: UA COLLECTION TYPE CLN CATCH MIDSTREAM
[2020-01-12 00:30] VITALS: BP 119/83
[2020-01-12 00:36] LABS: BACTERIA,URINE 3+ /HPF (Neg); MUCUS STRANDS MANY /LPF (Neg); RBC,URINE 0-2 /HPF (0-2); SQUAMOUS EPITHELIAL CELL,UR MANY /LPF (FEW); WBC,URINE 50-100 /HPF (0-4)
[2020-01-12] MEDS: normal saline 1000ml 1,000 ML IV SCH ×4 (01:59→21:30)
--- NOTE | 2020-01-12 06:30 | NUR ---
Patient in room DANNIE 344. I have received report from TAMIE Jeronimo and had the opportunity to ask questions and assume patient care.
[2020-01-12 06:49] LABS: ANION GAP 5 (8-16); BLOOD UREA NITROGEN 8 MG/DL (7-18); BUN/CREATININE RATIO 13.6 (6.6-38.0); CHLORIDE 104 MMOL/L (99-107); CREATININE 0.59 MG/DL (0.40-0.90); GLUCOSE 95 MG/DL (70-104); POTASSIUM 3.3 MMOL/L (3.5-5.1); SODIUM 138 MMOL/L (135-145); TOTAL CARBON DIOXIDE 29.5 MMOL/L (24-32)
[2020-01-12 06:50] LABS: ALANINE AMINOTRANSFERASE 13 U/L (12-78); ALBUMIN 2.5 G/DL (3.4-5.0); ALBUMIN/GLOBULIN RATIO 0.6 (1.1-1.5); ALKALINE PHOSPHATASE 75 IU/L (46-116); ASPARTATE AMINO TRANSFERASE 12 U/L (10-37); BILIRUBIN,TOTAL 0.6 MG/DL (0.1-1.0); CALCIUM 7.2 MG/DL (8.5-10.1); TOTAL PROTEIN 6.5 G/DL (6.4-8.2); eGFR > 90 ML/MIN
[2020-01-12 07:21] VITALS: BP 118/76
[2020-01-12] MEDS: heparin, porcine 5000 units/ml vial SQ SCH ×2 (08:26→19:14)
--- NOTE | 2020-01-12 09:15 | NUR ---
Paged Dr. Rodriguez notified her pt's K is low at 3.3. asking for K replacement orders. awaiting orders.
[2020-01-12 10:03] LABS: BASOPHILS # (AUTO) 0.1 X10'3 (0-0.2); BASOPHILS % (AUTO) 0.6 % (0-1); EOSINOPHILS % (AUTO) 0.4 % (0-6); HEMATOCRIT 26.1 % (35.0-45.0); HEMOGLOBIN 8.5 g/dl (12.0-16.0); LYMPHOCYTES # (AUTO) 0.8 X10'3 (1.1-4.8); LYMPHOCYTES % (AUTO) 8.4 % (21-51); MEAN CORPUSCULAR HEMOGLOBIN 25.1 PG (27.0-31.0); MEAN CORPUSCULAR HGB CONC 32.5 g/dL (33.0-36.5); MEAN CORPUSCULAR VOLUME 77.2 FL (78-98); MEAN PLATELET VOLUME 7.8 FL (7.4-10.4); MONOCYTES # (AUTO) 0.8 X10'3 (0-0.9); NEUTROPHILS # (AUTO) 7.6 X10'3 (1.8-7.7); NEUTROPHILS % (AUTO) 81.6 % (42-75); PLATELET COUNT 226 X10'3 (140-440); RED BLOOD COUNT 3.39 X10'6 (4.20-5.60); RED CELL DISTRIBUTION WIDTH 13.6 % (11.5-14.5); WHITE BLOOD COUNT 9.4 X10'3 (4.5-11.0)
--- NOTE | 2020-01-12 10:44 | NUR ---
PAGE out to Dr. Rodriguez "[facility]. pt in 344B Shameka Blank positive blood cultures gram positive cocci pairs and chains. aerobic bottle. 1592"
[2020-01-12] MEDS: VANCOMYCIN IV SCH ×2 (10:48→21:25)
[2020-01-12] MEDS: SODIUM CHLORIDE IV SCH ×2 (10:48→21:25)
[2020-01-12] MEDS: morphine 2 MG/ML inj. syringe IV PRN ×4 (10:49→21:26)
[2020-01-12 11:30] VITALS: BP 119/83
[2020-01-12] MEDS ORDERED: potassium Cl 20 mEq SR tablet PO PRN (13:05)
[2020-01-12] MEDS ORDERED: magnesium 4gm in 100ml NS 100 ML IV PRN (13:05)
[2020-01-12] MEDS ORDERED: potassium CL 10mEq/100ml bag 100 ML IV PRN (13:05)
[2020-01-12] MEDS ORDERED: magnesium Cl slow-release 64mg tablet PO PRN (13:05)
[2020-01-12] MEDS: potassium Cl 20 mEq SR tablet PO PRN ×2 (15:43→21:25)
--- NOTE | 2020-01-12 18:26 | NUR ---
Patient in room DANNIE 344. I have received report from TAMIE Herron and had the opportunity to ask questions and assume patient care. Patient is A&Ox4, DALY and is appropriate. She is sitting up in bed and reports right arm pain 8/10, just rec'd morphine and I will check orders for other pain relief options.
[2020-01-12] MEDS: mag hydrox/Alum hydrox/simeth 30ml oral suspension PO PRN (18:39)
[2020-01-12] MEDS: lactobacillus rhamnosus 10,000 MMU CELLS/CAPSULE PO SCH (19:12)
[2020-01-12 20:08] VITALS: BP 138/93
[2020-01-12 23:00] VITALS: BP 126/83
[2020-01-13] MEDS: potassium Cl 20 mEq SR tablet PO PRN (02:30)
[2020-01-13] MEDS: morphine 2 MG/ML inj. syringe IV PRN ×5 (02:35→21:03)
[2020-01-13] MEDS: HYDROcodone/acetaminophen 10/325mg tab PO PRN ×4 (04:38→22:28)
[2020-01-13 05:34] LABS: ALANINE AMINOTRANSFERASE 9 U/L (12-78); ALBUMIN/GLOBULIN RATIO 0.5 (1.1-1.5); ALKALINE PHOSPHATASE 74 IU/L (46-116); ANION GAP 10 (8-16); ASPARTATE AMINO TRANSFERASE 18 U/L (10-37); BILIRUBIN,TOTAL 0.2 MG/DL (0.1-1.0); BLOOD UREA NITROGEN 6 MG/DL (7-18); BUN/CREATININE RATIO 11.3 (6.6-38.0); CALCIUM 7.7 MG/DL (8.5-10.1); CHLORIDE 104 MMOL/L (99-107); CREATININE 0.53 MG/DL (0.40-0.90); GLUCOSE 94 MG/DL (70-104); POTASSIUM 4.1 MMOL/L (3.5-5.1); SODIUM 135 MMOL/L (135-145); TOTAL CARBON DIOXIDE 20.9 MMOL/L (24-32); eGFR > 90 ML/MIN
--- NOTE | 2020-01-13 06:14 | NUR ---
Problems reprioritized. Patient report given, questions answered & plan of care reviewed with TAMIE Farley.
--- NOTE | 2020-01-13 06:22 | NUR ---
Patient in room DANNIE 344B. I have received report from TAMIE GONSALVES and had the opportunity to ask questions and assume patient care.
[2020-01-13 07:00] VITALS: BP 127/88
[2020-01-13 07:38] LABS: BASOPHILS # (AUTO) 0.1 X10'3 (0-0.2); BASOPHILS % (AUTO) 0.6 % (0-1); EOSINOPHILS # (AUTO) 0.1 X10'3 (0-0.9); EOSINOPHILS % (AUTO) 0.5 % (0-6); HEMATOCRIT 29.4 % (35.0-45.0); HEMOGLOBIN 9.4 g/dl (12.0-16.0); LYMPHOCYTES % (AUTO) 10.3 % (21-51); MEAN CORPUSCULAR HEMOGLOBIN 24.8 PG (27.0-31.0); MEAN CORPUSCULAR HGB CONC 32.1 g/dL (33.0-36.5); MEAN CORPUSCULAR VOLUME 77.2 FL (78-98); MONOCYTES # (AUTO) 0.8 X10'3 (0-0.9); MONOCYTES % (AUTO) 8.2 % (2-12); NEUTROPHILS # (AUTO) 7.8 X10'3 (1.8-7.7); NEUTROPHILS % (AUTO) 80.4 % (42-75); PLATELET COUNT 245 X10'3 (140-440); RED CELL DISTRIBUTION WIDTH 13.8 % (11.5-14.5); WHITE BLOOD COUNT 9.7 X10'3 (4.5-11.0)
[2020-01-13] MEDS: heparin, porcine 5000 units/ml vial SQ SCH ×2 (08:19→19:04)
[2020-01-13] MEDS: lactobacillus rhamnosus 10,000 MMU CELLS/CAPSULE PO SCH ×2 (08:19→19:03)
--- NOTE | 2020-01-13 09:00 | NUR ---
MRSA FOUND IN BLOOD, PAGED AWAITING CALL BACK WILL PUT THE PATIENT ON CONTACT PRECAUTIONS
[2020-01-13] MEDS: normal saline 1000ml 1,000 ML IV SCH (10:46)
[2020-01-13] MEDS: SODIUM CHLORIDE IV SCH ×2 (10:46→21:07)
[2020-01-13] MEDS: VANCOMYCIN IV SCH ×2 (10:46→21:07)
[2020-01-13] MEDS ORDERED: iohexol 300mg/ml 100ml inj. ONE (12:28)
[2020-01-13] MEDS ORDERED: CefTRIAXone inj 2,000 MG in normal saline 100ml IV soln 50 ML IV SCH (12:40)
[2020-01-13] MEDS: CefTRIAXone inj 2,000 MG in normal saline 100ml IV soln 100 ML IV SCH (14:53)
--- NOTE | 2020-01-13 18:15 | NUR ---
Problems reprioritized. Patient report given, questions answered & plan of care reviewed with TAMIE ROSAS.
--- NOTE | 2020-01-13 18:49 | NUR ---
Patient in room DANNIE 344. I have received report from Martine WILLETT and had the opportunity to ask questions and assume patient care.
[2020-01-13] MEDS: mag hydrox/Alum hydrox/simeth 30ml oral suspension PO PRN (19:03)
[2020-01-13 20:00] VITALS: BP 122/91
[2020-01-14] VITALS: BP 122/83
[2020-01-14] MEDS: morphine 2 MG/ML inj. syringe IV PRN ×4 (00:55→21:48)
[2020-01-14] MEDS: normal saline 1000ml 1,000 ML IV SCH ×3 (01:22→22:08)
--- NOTE | 2020-01-14 06:11 | NUR ---
Problems reprioritized. Patient report given, questions answered & plan of care reviewed with Rosio WILLETT.
[2020-01-14 06:14] LABS: BASOPHILS % (AUTO) 0.6 % (0-1); EOSINOPHILS # (AUTO) 0.1 X10'3 (0-0.9); EOSINOPHILS % (AUTO) 1.3 % (0-6); HEMATOCRIT 32.1 % (35.0-45.0); HEMOGLOBIN 10.2 g/dl (12.0-16.0); LYMPHOCYTES # (AUTO) 1.4 X10'3 (1.1-4.8); LYMPHOCYTES % (AUTO) 17.7 % (21-51); MEAN CORPUSCULAR HEMOGLOBIN 25.1 PG (27.0-31.0); MEAN CORPUSCULAR HGB CONC 31.9 g/dL (33.0-36.5); MEAN CORPUSCULAR VOLUME 78.8 FL (78-98); MEAN PLATELET VOLUME 8.6 FL (7.4-10.4); MONOCYTES # (AUTO) 0.9 X10'3 (0-0.9); MONOCYTES % (AUTO) 11.2 % (2-12); NEUTROPHILS # (AUTO) 5.5 X10'3 (1.8-7.7); NEUTROPHILS % (AUTO) 69.2 % (42-75); PLATELET COUNT 272 X10'3 (140-440); RED BLOOD COUNT 4.07 X10'6 (4.20-5.60); WHITE BLOOD COUNT 7.9 X10'3 (4.5-11.0)
[2020-01-14 06:28] LABS: ALANINE AMINOTRANSFERASE 10 U/L (12-78); ALBUMIN/GLOBULIN RATIO 0.5 (1.1-1.5); ALKALINE PHOSPHATASE 72 IU/L (46-116); ANION GAP 7 (8-16); ASPARTATE AMINO TRANSFERASE 21 U/L (10-37); BILIRUBIN,TOTAL 0.1 MG/DL (0.1-1.0); BLOOD UREA NITROGEN 6 MG/DL (7-18); BUN/CREATININE RATIO 10.7 (6.6-38.0); CALCIUM 7.8 MG/DL (8.5-10.1); CHLORIDE 103 MMOL/L (99-107); CREATININE 0.56 MG/DL (0.40-0.90); GLUCOSE 88 MG/DL (70-104); SODIUM 135 MMOL/L (135-145); TOTAL CARBON DIOXIDE 25.1 MMOL/L (24-32); TOTAL PROTEIN 6.1 G/DL (6.4-8.2); eGFR > 90 ML/MIN
[2020-01-14 06:30] LABS: POTASSIUM 4.6 MMOL/L (3.5-5.1)
[2020-01-14 07:00] VITALS: BP 118/76
[2020-01-14 08:00] VITALS: BP 118/76
[2020-01-14] MEDS: HYDROcodone/acetaminophen 10/325mg tab PO PRN ×2 (08:12→16:11)
[2020-01-14] MEDS: lactobacillus rhamnosus 10,000 MMU CELLS/CAPSULE PO SCH ×2 (08:12→19:24)
[2020-01-14] MEDS: CefTRIAXone inj 2,000 MG in normal saline 100ml IV soln 100 ML IV SCH (08:12)
[2020-01-14] MEDS: heparin, porcine 5000 units/ml vial SQ SCH ×2 (08:13→19:24)
[2020-01-14] MEDS ORDERED: GADOTERATE MEGLUMINE 7.5 MMOL/15 ML VIAL IV ONE (08:49)
[2020-01-14] MEDS ORDERED: VANCOMYCIN LEVEL IV ONE (09:30)
[2020-01-14] MEDS: SODIUM CHLORIDE IV SCH (10:17)
[2020-01-14] MEDS: VANCOMYCIN IV SCH (10:17)
[2020-01-14 12:00] VITALS: BP 117/76
[2020-01-14 15:56] LABS: CREATINE KINASE 22 U/L (26-192)
--- NOTE | 2020-01-14 18:00 | NUR ---
Patient in room DANNIE 344. I have received report from Rosio WILLETT and had the opportunity to ask questions and assume patient care.
[2020-01-14] MEDS: mag hydrox/Alum hydrox/simeth 30ml oral suspension PO PRN ×2 (18:07→22:08)
--- NOTE | 2020-01-14 18:40 | NUR ---
Gave report to Trang WILLETT.
[2020-01-14] MEDS: penicillin G potassium inj 2,000,000 UNIT in normal saline 100ml IV soln 100 ML IV SCH (19:35)
[2020-01-14 20:00] VITALS: BP 136/88
[2020-01-14] MEDS: VANCOMYCIN 1,500MG inj. 1,500 MG in normal saline 500ml IV soln 300 ML IV SCH (21:47)
[2020-01-15] VITALS: BP 109/65
[2020-01-15] MEDS: penicillin G potassium inj 2,000,000 UNIT in normal saline 100ml IV soln 100 ML IV SCH ×6 (00:10→19:51)
[2020-01-15] MEDS: morphine 2 MG/ML inj. syringe IV PRN ×2 (04:39→11:24)
[2020-01-15 05:34] LABS: ALANINE AMINOTRANSFERASE 16 U/L (12-78); ALBUMIN 2.2 G/DL (3.4-5.0); ALBUMIN/GLOBULIN RATIO 0.5 (1.1-1.5); ALKALINE PHOSPHATASE 85 IU/L (46-116); ANION GAP 6 (8-16); BILIRUBIN,TOTAL 0.2 MG/DL (0.1-1.0); BLOOD UREA NITROGEN 6 MG/DL (7-18); BUN/CREATININE RATIO 11.1 (6.6-38.0); CALCIUM 7.9 MG/DL (8.5-10.1); CHLORIDE 104 MMOL/L (99-107); CREATININE 0.54 MG/DL (0.40-0.90); GLUCOSE 84 MG/DL (70-104); SODIUM 137 MMOL/L (135-145); TOTAL CARBON DIOXIDE 27.5 MMOL/L (24-32); TOTAL PROTEIN 6.5 G/DL (6.4-8.2); eGFR > 90 ML/MIN
[2020-01-15 05:36] LABS: ASPARTATE AMINO TRANSFERASE 25 U/L (10-37); POTASSIUM 5.1 MMOL/L (3.5-5.1)
[2020-01-15 06:02] LABS: BASOPHILS # (AUTO) 0.1 X10'3 (0-0.2); BASOPHILS % (AUTO) 1.2 % (0-1); EOSINOPHILS # (AUTO) 0.1 X10'3 (0-0.9); EOSINOPHILS % (AUTO) 1.4 % (0-6); HEMATOCRIT 28.3 % (35.0-45.0); HEMOGLOBIN 9.2 g/dl (12.0-16.0); LYMPHOCYTES # (AUTO) 1.2 X10'3 (1.1-4.8); LYMPHOCYTES % (AUTO) 18.5 % (21-51); MEAN CORPUSCULAR HEMOGLOBIN 25.1 PG (27.0-31.0); MEAN CORPUSCULAR HGB CONC 32.5 g/dL (33.0-36.5); MEAN CORPUSCULAR VOLUME 77.3 FL (78-98); MEAN PLATELET VOLUME 8.1 FL (7.4-10.4); MONOCYTES # (AUTO) 0.5 X10'3 (0-0.9); MONOCYTES % (AUTO) 7.8 % (2-12); NEUTROPHILS # (AUTO) 4.5 X10'3 (1.8-7.7); NEUTROPHILS % (AUTO) 71.1 % (42-75); PLATELET COUNT 317 X10'3 (140-440); RED BLOOD COUNT 3.66 X10'6 (4.20-5.60); RED CELL DISTRIBUTION WIDTH 13.9 % (11.5-14.5); WHITE BLOOD COUNT 6.3 X10'3 (4.5-11.0)
--- NOTE | 2020-01-15 06:41 | NUR ---
Problems reprioritized. Patient report given, questions answered & plan of care reviewed with Odalys WILLETT.
--- NOTE | 2020-01-15 06:42 | NUR ---
Patient in room DANNIE 344. I have received report from TAMIE Costello and had the opportunity to ask questions and assume patient care.
[2020-01-15 07:00] VITALS: BP 116/73
[2020-01-15] MEDS: lactobacillus rhamnosus 10,000 MMU CELLS/CAPSULE PO SCH ×2 (08:31→19:51)
[2020-01-15] MEDS: heparin, porcine 5000 units/ml vial SQ SCH ×2 (08:32→19:53)
[2020-01-15] MEDS: HYDROcodone/acetaminophen 10/325mg tab PO PRN ×3 (08:40→19:52)
[2020-01-15] MEDS: CefTRIAXone inj 2,000 MG in normal saline 100ml IV soln 100 ML IV SCH (09:23)
[2020-01-15] MEDS: VANCOMYCIN 1,500MG inj. 1,500 MG in normal saline 500ml IV soln 300 ML IV SCH (10:58)
[2020-01-15] MEDS: normal saline 1000ml 1,000 ML IV SCH ×2 (11:04→17:22)
[2020-01-15 12:00] LABS: HIV ANTIBODY 1&2 RAPID NON-REACTIVE (Neg)
[2020-01-15 12:16] VITALS: BP 110/77
[2020-01-15] MEDS: pantoprazole 40mg Tablet.DR PO SCH (18:02)
--- NOTE | 2020-01-15 18:35 | NUR ---
Problems reprioritized. Patient report given, questions answered & plan of care reviewed with TAMIE Blum.
--- NOTE | 2020-01-15 18:40 | NUR ---
Patient in room DANNIE 344. I have received report from PARTHA WILLETT and had the opportunity to ask questions and assume patient care.
[2020-01-15 20:00] VITALS: BP 115/80
[2020-01-16] VITALS: BP 117/82
[2020-01-16] MEDS: penicillin G potassium inj 2,000,000 UNIT in normal saline 100ml IV soln 100 ML IV SCH ×6 (00:06→19:41)
[2020-01-16] MEDS: HYDROcodone/acetaminophen 10/325mg tab PO PRN ×4 (00:06→19:42)
[2020-01-16] MEDS: normal saline 1000ml 1,000 ML IV SCH ×3 (04:09→16:16)
[2020-01-16 05:11] VITALS: BP 115/80
[2020-01-16 05:39] LABS: BASOPHILS # (AUTO) 0.1 X10'3 (0-0.2); BASOPHILS % (AUTO) 1.2 % (0-1); EOSINOPHILS # (AUTO) 0.1 X10'3 (0-0.9); EOSINOPHILS % (AUTO) 2.5 % (0-6); HEMATOCRIT 30.9 % (35.0-45.0); HEMOGLOBIN 9.9 g/dl (12.0-16.0); LYMPHOCYTES # (AUTO) 1.4 X10'3 (1.1-4.8); LYMPHOCYTES % (AUTO) 27.6 % (21-51); MEAN CORPUSCULAR HEMOGLOBIN 24.8 PG (27.0-31.0); MEAN CORPUSCULAR VOLUME 77.6 FL (78-98); MEAN PLATELET VOLUME 8.1 FL (7.4-10.4); MONOCYTES # (AUTO) 0.6 X10'3 (0-0.9); MONOCYTES % (AUTO) 11.7 % (2-12); NEUTROPHILS # (AUTO) 2.9 X10'3 (1.8-7.7); PLATELET COUNT 343 X10'3 (140-440); RED BLOOD COUNT 3.98 X10'6 (4.20-5.60); RED CELL DISTRIBUTION WIDTH 14.2 % (11.5-14.5); WHITE BLOOD COUNT 5.2 X10'3 (4.5-11.0)
[2020-01-16 05:50] LABS: ALANINE AMINOTRANSFERASE 11 U/L (12-78); ALBUMIN/GLOBULIN RATIO 0.4 (1.1-1.5); ALKALINE PHOSPHATASE 72 IU/L (46-116); ANION GAP 4 (8-16); ASPARTATE AMINO TRANSFERASE 17 U/L (10-37); BILIRUBIN,TOTAL 0.1 MG/DL (0.1-1.0); BLOOD UREA NITROGEN 11 MG/DL (7-18); BUN/CREATININE RATIO 20.8 (6.6-38.0); CALCIUM 8.1 MG/DL (8.5-10.1); CHLORIDE 105 MMOL/L (99-107); CREATININE 0.53 MG/DL (0.40-0.90); GLUCOSE 78 MG/DL (70-104); POTASSIUM 4.5 MMOL/L (3.5-5.1); SODIUM 137 MMOL/L (135-145); TOTAL CARBON DIOXIDE 27.7 MMOL/L (24-32); TOTAL PROTEIN 6.6 G/DL (6.4-8.2); eGFR > 90 ML/MIN
--- NOTE | 2020-01-16 06:07 | NUR ---
Problems reprioritized. Patient report given, questions answered & plan of care reviewed with ORLIN WILLETT.
--- NOTE | 2020-01-16 06:08 | NUR ---
Patient in room DANNIE 344. I have received report from TAMIE Blum and had the opportunity to ask questions and assume patient care.
[2020-01-16 07:00] VITALS: BP 125/85
[2020-01-16] MEDS: pantoprazole 40mg Tablet.DR PO SCH (07:59)
[2020-01-16] MEDS: heparin, porcine 5000 units/ml vial SQ SCH ×2 (07:59→19:43)
[2020-01-16] MEDS: lactobacillus rhamnosus 10,000 MMU CELLS/CAPSULE PO SCH ×2 (07:59→19:41)
[2020-01-16] MEDS ORDERED: VANCOMYCIN LEVEL IV ONE (09:30)
[2020-01-16] MEDS: morphine 2 MG/ML inj. syringe IV PRN ×3 (09:38→21:31)
[2020-01-16 11:58] LABS: HBSAG SCREEN Negative (Negative); HEP A AB, IGM Negative (Negative); HEPATITIS C ANTIBODY 5.6 s/co ratio (0.0-0.9)
[2020-01-16 12:00] VITALS: BP 113/71
--- NOTE | 2020-01-16 13:57 | NUR ---
Malnutrition consult: Pt reports 14-23 lb wt loss with decreased appetite per malnutrition risk screen with RN. Pt with scaled wt hx of 66 kg taken 04/01/19, current scaled weight is 70.45 kg (119% IBW); pt currently +4.45 kg per records. Pt documented with no decrease in muscle strength or edema. Pt currently on a regular diet documented with 100% PO intake meeting nutrient needs. Pt appears well developed, well nourished per ED report. Pt currently lacks a minimum of two criteria for malnutrition. Pt with IVDA admit with right arm cellulitis with tenosynovitis. LBM 01/13. Will continue to follow. Recommendations: 1) Continue regular diet 2) Monitor need for additional protein 3) Routine bowel care 4) Scaled weights per rx Addendum: 01/16/20 at [address] Amended: Links added.
--- NOTE | 2020-01-16 17:57 | NUR ---
Problems reprioritized. Patient report given, questions answered & plan of care reviewed with TAMIE Blum.
--- NOTE | 2020-01-16 18:30 | NUR ---
Patient in room DANNIE 344. I have received report from ORLIN WILLETT and had the opportunity to ask questions and assume patient care.
[2020-01-16 20:35] VITALS: BP 111/71
[2020-01-17 00:36] VITALS: BP 102/71
[2020-01-17] MEDS: penicillin G potassium inj 2,000,000 UNIT in normal saline 100ml IV soln 100 ML IV SCH ×3 (00:51→08:00)
[2020-01-17] MEDS: HYDROcodone/acetaminophen 10/325mg tab PO PRN ×3 (00:54→11:51)
[2020-01-17] MEDS: normal saline 1000ml 1,000 ML IV SCH (05:49)
--- NOTE | 2020-01-17 06:30 | NUR ---
Problems reprioritized. Patient report given, questions answered & plan of care reviewed with CHENTE WILLETT.
--- NOTE | 2020-01-17 06:30 | NUR ---
Patient in room DANNIE 344. I have received report from Humaira Gerardo RN and had the opportunity to ask questions and assume patient care.
[2020-01-17 07:00] VITALS: BP 109/61
[2020-01-17] MEDS: pantoprazole 40mg Tablet.DR PO SCH (08:00)
[2020-01-17] MEDS: lactobacillus rhamnosus 10,000 MMU CELLS/CAPSULE PO SCH (08:00)
[2020-01-17] MEDS: heparin, porcine 5000 units/ml vial SQ SCH (08:00)
--- NOTE | 2020-01-17 10:26 | NUR ---
Patient in room DANNIE 344. I have received report from bank appraiser and had the opportunity to ask questions and assume patient care.
[2020-01-17] MEDS ORDERED: AMOX500C2 PO (11:23)
--- NOTE | 2020-01-17 11:30 | NUR ---
Problems reprioritized. Patient report given, questions answered & plan of care reviewed with TAMIE Love.
[2020-01-17 11:45] VITALS: BP 108/69
--- NOTE | 2020-01-17 12:00 | NUR ---
AGREE WITH PHYSICAL ASSESSMENT DONE TODAY. NO CHANGES IN PT CONDITION. Addendum: 01/17/20 at 1229 by Rachana Ontiveros RN Amended: Links added.
--- NOTE | 2020-01-17 12:30 | NUR ---
PT DISCHARGED IN STABLE CONDITION. LEFT FACILITY IN STABLE CONDITION. LEFT FACILITY VIA CAB. IV DC CANULA INTACT. ALL BELONGINGS IN HAND. SHOES, CLOTHING, AND LUNCH PROVIDED TO PT UPON DISCHARGE. PT GIVEN INFORMATION FOR RESOURCES. Addendum: 01/17/20 at 1232 by Rachana Ontiveros RN Amended: Links added.
== END 2020-01-17 12:21 | disposition home or self-care (01) | DRG 720 ==
LOC: ER 21:05 → ED HOLD 23:22 → SUR 3N 01-12 00:35
PROVIDERS: ADMIT Internal Medicine; ATTEND Internal Medicine
DX: A40.0 Sepsis due to streptococcus, group A (principal); M65.9 Synovitis and tenosynovitis, unspecified; L03.113 Cellulitis of right upper limb; F19.10 Other psychoactive substance abuse, uncomplicated; G89.4 Chronic pain syndrome; F11.10 Opioid abuse, uncomplicated; D50.9 Iron deficiency anemia, unspecified; E87.6 Hypokalemia; B19.20 Unspecified viral hepatitis C without hepatic coma; I10 Essential (primary) hypertension; Z96.652 Presence of left artificial knee joint; K21.9 Gastro-esophageal reflux disease without esophagitis; F17.200 Nicotine dependence, unspecified, uncomplicated; Z88.6 Allergy status to analgesic agent; Z59.0 Homelessness
CPT/HCPCS: 36415; 73201; 73220; 80053; 80074; 80202; 81001; 81025; 82550; 83605; 84145; 85025; 85610; 85730; 86703; 87040; 87077; 87081; 87186; 93306; 96365; 96375; 99285; A9575; G0378; J0696; J1644; J1885; J2270; J2540; J3370; J7030; J7040; Q9967

== ENCOUNTER 2020-03-22 10:18 | Inpatient (IN) | payer MEDICAID ==
[~2020-03-22] VITALS: Ht 167.6 cm; Wt 79.9 kg
[~2020-03-22 10:18] MED LIST changes: -ACET-1059; -DOXY-224 PO; -HYDR-4383 PO
[2020-03-22] MEDS ORDERED: acetaminophen 325mg tablet PO ONE (10:30)
[2020-03-22] MEDS ORDERED: normal saline 1000ML IV soln IV ONE (10:30)
[2020-03-22] MEDS ORDERED: CefTRIAXone 2gm/D5W 50ml 50 ML IV ONE (10:30)
[2020-03-22 11:17] LABS: BASOPHILS # (AUTO) 0.3 X10'3 (0-0.2); BASOPHILS % (AUTO) 1.5 % (0-1); EOSINOPHILS % (AUTO) 0.1 % (0-6); HEMATOCRIT 32.3 % (35.0-45.0); HEMOGLOBIN 10.5 g/dl (12.0-16.0); LYMPHOCYTES # (AUTO) 0.4 X10'3 (1.1-4.8); LYMPHOCYTES % (AUTO) 2.4 % (21-51); MEAN CORPUSCULAR HGB CONC 32.5 g/dL (33.0-36.5); MEAN CORPUSCULAR VOLUME 73.8 FL (78-98); MEAN PLATELET VOLUME 11.2 FL (7.4-10.4); MONOCYTES # (AUTO) 0.8 X10'3 (0-0.9); MONOCYTES % (AUTO) 4.9 % (2-12); NEUTROPHILS # (AUTO) 14.9 X10'3 (1.8-7.7); NEUTROPHILS % (AUTO) 91.1 % (42-75); PLATELET COUNT 121 X10'3 (140-440); RED BLOOD COUNT 4.37 X10'6 (4.20-5.60); RED CELL DISTRIBUTION WIDTH 16.6 % (11.5-14.5); WHITE BLOOD COUNT 16.4 X10'3 (4.5-11.0)
[2020-03-22 11:24] LABS: URINE HCG NEGATIVE (NEG)
[2020-03-22 11:29] LABS: CLARITY,URINE CLOUDY (Clear); UA COLLECTION TYPE CLN CATCH MIDSTREAM
[2020-03-22 11:32] LABS: ALANINE AMINOTRANSFERASE 29 U/L (12-78); ALBUMIN 2.5 G/DL (3.4-5.0); ALBUMIN/GLOBULIN RATIO 0.6 (1.1-1.5); ALKALINE PHOSPHATASE 125 IU/L (46-116); ANION GAP 15 (8-16); ASPARTATE AMINO TRANSFERASE 48 U/L (10-37); BILIRUBIN,TOTAL 0.6 MG/DL (0.1-1.0); BLOOD UREA NITROGEN 59 MG/DL (7-18); BUN/CREATININE RATIO 14.4 (6.6-38.0); CALCIUM 7.6 MG/DL (8.5-10.1); CHLORIDE 92 MMOL/L (99-107); CREATININE 4.09 MG/DL (0.40-0.90); GLUCOSE 100 MG/DL (70-104); POTASSIUM 3.3 MMOL/L (3.5-5.1); SODIUM 129 MMOL/L (135-145); TOTAL CARBON DIOXIDE 22.1 MMOL/L (24-32); TOTAL PROTEIN 6.8 G/DL (6.4-8.2); eGFR 12 ML/MIN
[2020-03-22 11:33] LABS: COLOR,URINE BROWN (Yellow)
[2020-03-22 11:34] LABS: WBC,URINE 50-100 /HPF (0-4)
[2020-03-22 11:35] LABS: BACTERIA,URINE 4+ /HPF (Neg); MUCUS STRANDS NONE SEEN /LPF (Neg); RBC,URINE 0-2 /HPF (0-2)
[2020-03-22 11:36] LABS: SQUAMOUS EPITHELIAL CELL,UR MODERATE /LPF (FEW); WBC CLUMPS,URINE FEW /HPF (NEGATIVE)
[2020-03-22 11:39] LABS: WAXY CASTS,URINE 0-3 /LPF (NEGATIVE)
[2020-03-22 11:41] LABS: TRICHOMONAS,URINE FEW /HPF (NEGATIVE)
[2020-03-22 11:42] LABS: URINE AMPHETAMINE SCREEN POSITIVE (Neg); URINE BARBITUATE SCREEN NEGATIVE (Neg); URINE BENZODIAZEPINES SCREEN NEGATIVE (Neg); URINE CANNABINOID SCREEN NEGATIVE (Neg); URINE COCAINE SCREEN NEGATIVE (Neg); URINE METHADONE SCREEN NEGATIVE (Neg); URINE OPIATE SCREEN POSITIVE (Neg); URINE PHENCYCLIDINE SCREEN NEGATIVE (Neg)
[2020-03-22 11:57] LABS: ANISOCYTOSIS 1+; MICROCYTOSIS 1+; PLATELET ESTIMATE DECREASED; TOTAL CELLS COUNTED 100
[2020-03-22 11:58] LABS: BURR CELLS 1+; C-REACTIVE PROTEIN 24.44 MG/DL (0.0-0.5); CKMB RELATIVE INDEX 2.4 RATIO (0-2.5); CREATINE KINASE 120 U/L (26-192); LACTATE DEHYDROGENASE 198 U/L (81-234); LARGE PLATELETS MODERATE; MAGNESIUM 1.8 MG/DL (1.5-2.4)
[2020-03-22 12:08] LABS: FERRITIN 827 NG/ML (8-252)
[2020-03-22 12:09] LABS: ETHANOL < 0.010 GM/DL (0.0-0.010)
[2020-03-22 12:14] LABS: D-DIMER 23.16 MG/L FEU (0-0.50); PARTIAL THROMBOPLASTIN TIME 28 SECONDS (22-32)
--- NOTE | 2020-03-22 12:21 | NUR ---
Pt requesting something to drink. Pt given water. Pt also, c/o generalized body pain. Dr. Alonzo notified and verbal order for 15mg IV toradol given.
[2020-03-22] MEDS ORDERED: ketorolac trometh. 30mg/ml inj. IV STA (12:22)
--- NOTE | 2020-03-22 12:54 | NUR ---
Lab at bedside for lactic and BC.
[2020-03-22] MEDS ORDERED: potassium Cl 20 mEq SR tablet PO STA (12:58)
[2020-03-22] MEDS ORDERED: vancomycin/NS 1 GM ADD-VANTAGE 250 ML IV ONE (13:00)
[2020-03-22] MEDS ORDERED: NO HOME MEDS (13:03)
--- NOTE | 2020-03-22 13:03 | NUR ---
Pt updated with plan of care and is awaiting hospitalist for admission.
[2020-03-22] MEDS ORDERED: enoxaparin 60mg/0.6ml syringe SUBCUT ONE (13:15)
[2020-03-22] MEDS ORDERED: enoxaparin 100mg/ml syringe SUBCUT ONE (13:15)
[2020-03-22] MEDS ORDERED: potassium CL 10mEq/100ml bag 100 ML IV PRN ×2 (14:45)
[2020-03-22] MEDS ORDERED: potassium Cl 20 mEq SR tablet PO PRN ×2 (14:45)
[2020-03-22] MEDS ORDERED: ondansetron/PF 4mg/2ml inj IV PRN (14:45)
[2020-03-22] MEDS ORDERED: magnesium 2GM in 50ml NS 50 ML IV PRN (14:45)
[2020-03-22] MEDS ORDERED: magnesium 4gm in 100ml NS 100 ML IV PRN (14:45)
[2020-03-22] MEDS ORDERED: magnesium Cl slow-release 64mg tablet PO PRN (14:45)
--- NOTE | 2020-03-22 14:46 | NUR ---
Pt complianing of pain. Dr. Murrell called and admit orders requested.
[2020-03-22] MEDS: normal saline 1000ml 1,000 ML IV SCH (15:35)
[2020-03-22 16:27] VITALS: BP 83/55
[2020-03-22 18:00] VITALS: BP 85/52
[2020-03-22] MEDS ORDERED: pneumococcal 23-VAL P-sac vacc 25 mcg/0.5ml vial IMVAC ONE (18:05)
--- NOTE | 2020-03-22 18:15 | NUR ---
Patient in room PCU 3025. I have received report from TAMIE Mathews and had the opportunity to ask questions and assume patient care.
--- NOTE | 2020-03-22 18:24 | NUR ---
Dr. Gallardo at bedside to see pt.
[2020-03-22] MEDS ORDERED: HYDROcodone/acetaminophen 5mg/325mg tablet PO PRN (18:25)
--- NOTE | 2020-03-22 18:36 | NUR ---
Problems reprioritized. Patient report given, questions answered & plan of care reviewed with Farheen WILLETT.
[2020-03-22] MEDS: HYDROcodone/acetaminophen 10/325mg tab PO PRN (18:59)
[2020-03-22] MEDS: heparin, porcine 5000 units/ml vial SQ SCH (19:48)
[2020-03-22 19:53] VITALS: BP 94/59
[2020-03-22] MEDS: K and/or MAG REPLACEMENT MC SCH (20:00)
--- NOTE | 2020-03-22 20:40 | NUR ---
Patient does not have dentures. Ordered soft to chew diet.
--- NOTE | 2020-03-22 20:41 | NUR ---
PAGER ID: [phone] MESSAGE: [id number] Shameka Abhay DX: Sepsis, UIT, ETOH positive blood cultures aerobic and anaerobic gram positive. Pt on Rocephin only. TAMIE Zhong PCU [id number]
--- NOTE | 2020-03-22 20:57 | NUR ---
No change in orders for positive blood cultures as pt kidney fxn poor.
[2020-03-22 22:39] VITALS: BP 96/54
[2020-03-23] MEDS: normal saline 1000ml 1,000 ML IV SCH ×3 (00:18→16:17)
[2020-03-23 02:09] VITALS: BP 91/55
[2020-03-23 06:00] VITALS: BP 85/45
--- NOTE | 2020-03-23 06:19 | NUR ---
Problems reprioritized. Patient report given, questions answered & plan of care reviewed with TAMIE Fabian.
[2020-03-23 06:33] LABS: % IRON SATURATION 9 % (11-46); IRON 9 UG/DL (49-151); TOTAL IRON BINDING CAPACITY 99 UG/DL (259-388)
[2020-03-23 07:02] LABS: BASOPHILS % (AUTO) 0.5 % (0-1); EOSINOPHILS # (AUTO) 0.1 X10'3 (0-0.9); EOSINOPHILS % (AUTO) 0.8 % (0-6); HEMATOCRIT 26.1 % (35.0-45.0); HEMOGLOBIN 8.5 g/dl (12.0-16.0); LYMPHOCYTES # (AUTO) 0.5 X10'3 (1.1-4.8); MEAN CORPUSCULAR HGB CONC 32.7 g/dL (33.0-36.5); MEAN CORPUSCULAR VOLUME 73.3 FL (78-98); MONOCYTES # (AUTO) 0.4 X10'3 (0-0.9); MONOCYTES % (AUTO) 4.4 % (2-12); NEUTROPHILS # (AUTO) 7.5 X10'3 (1.8-7.7); NEUTROPHILS % (AUTO) 88.3 % (42-75); PLATELET COUNT 102 X10'3 (140-440); RED BLOOD COUNT 3.56 X10'6 (4.20-5.60); RED CELL DISTRIBUTION WIDTH 16.7 % (11.5-14.5); WHITE BLOOD COUNT 8.6 X10'3 (4.5-11.0)
--- NOTE | 2020-03-23 07:15 | NUR ---
Patient in room PCU 3025. I have received report from Farheen WILLETT and had the opportunity to ask questions and assume patient care.
--- NOTE | 2020-03-23 07:24 | NUR ---
patients d dimer 03/22/[address] mota notified. B/P 85/45 HR 26. orders given for Echo, increase fluids, [facility]. will continue to closely monitor.
[2020-03-23 07:25] LABS: ALBUMIN 1.7 G/DL (3.4-5.0); ANION GAP 12 (8-16); BLOOD UREA NITROGEN 63 MG/DL (7-18); BUN/CREATININE RATIO 19.9 (6.6-38.0); CALCIUM 6.7 MG/DL (8.5-10.1); CHLORIDE 97 MMOL/L (99-107); CHOL/HDL RATIO 7.9 (0.00-4.99); CHOLESTEROL 79 MG/DL (0-200); CREATININE 3.16 MG/DL (0.40-0.90); GLUCOSE 93 MG/DL (70-104); HDL CHOLESTEROL 10 MG/DL (35-60); LDL CHOLESTEROL 24 MG/DL (50-100); MAGNESIUM 1.8 MG/DL (1.5-2.4); POTASSIUM 3.5 MMOL/L (3.5-5.1); SODIUM 131 MMOL/L (135-145); TOTAL CARBON DIOXIDE 21.6 MMOL/L (24-32); TRIGLYCERIDES 148 MG/DL (20-135); eGFR 16 ML/MIN
[2020-03-23 07:44] LABS: PLATELET ESTIMATE DECREASED; TOTAL CELLS COUNTED 100
[2020-03-23 07:45] LABS: ANISOCYTOSIS 1+; GIANT PLATELET FEW; HYPOGRANULAR PLATELETS FEW; LARGE PLATELETS MODERATE
[2020-03-23 07:46] LABS: BURR CELLS 2+; ELLIPTOCYTES FEW; MICROCYTOSIS 1+
[2020-03-23] MEDS: K and/or MAG REPLACEMENT MC SCH ×2 (08:00→20:00)
[2020-03-23] MEDS: CefTRIAXone/D5W-Rocephin 1gm 50 ML IV SCH (08:14)
[2020-03-23] MEDS: heparin, porcine 5000 units/ml vial SQ SCH ×2 (08:16→21:47)
[2020-03-23] MEDS: pantoprazole 40mg Tablet.DR PO SCH (08:17)
[2020-03-23] MEDS: HYDROcodone/acetaminophen 10/325mg tab PO PRN (08:17)
[2020-03-23] MEDS ORDERED: vancomycin/NS 1 GM ADD-VANTAGE 250 ML IV PRN (08:20)
[2020-03-23] MEDS ORDERED: vancomycin/NS 1 GM ADD-VANTAGE 250 ML IV ONE (09:00)
[2020-03-23 10:00] VITALS: BP 120/57
[2020-03-23] MEDS ORDERED: pneumococcal 23-VAL P-sac vacc 25 mcg/0.5ml vial IMVAC ONE (10:00)
[2020-03-23 15:00] VITALS: BP 103/71
[2020-03-23] MEDS: morphine 2 MG/ML inj. syringe IV PRN ×2 (17:44→21:46)
[2020-03-23 18:00] VITALS: BP 103/71
--- NOTE | 2020-03-23 18:50 | NUR ---
patient sleeping most of shift. painful when awake. Received order for MS via DR Gallardo. All cares given. patient has left painful calf. Stated ahe did use heroin in that apot. Blood cultures are positive see report. Dr Gallardo aware of this one time order of vanco given. report given to Rachana WILLETT
--- NOTE | 2020-03-24 01:35 | NUR ---
Lab called to let us know there was a vanco trough due but no time of draw ordered. Called Pharmacy to let them know that the vanco trough draw did not have a time of order in correlation to patient's IV vanco dose. Walter from pharmacy said he will either take care of it or pass it along to day shift to ensure that patient receives her daily dose
[2020-03-24] MEDS: normal saline 1000ml 1,000 ML IV SCH ×4 (03:48→18:57)
[2020-03-24 05:00] LABS: BASOPHILS % (AUTO) 0.3 % (0-1); EOSINOPHILS % (AUTO) 0.1 % (0-6); HEMATOCRIT 29.8 % (35.0-45.0); HEMOGLOBIN 9.6 g/dl (12.0-16.0); LYMPHOCYTES # (AUTO) 0.9 X10'3 (1.1-4.8); LYMPHOCYTES % (AUTO) 7.2 % (21-51); MEAN CORPUSCULAR HEMOGLOBIN 23.9 PG (27.0-31.0); MEAN CORPUSCULAR HGB CONC 32.2 g/dL (33.0-36.5); MEAN CORPUSCULAR VOLUME 74.2 FL (78-98); MEAN PLATELET VOLUME 9.4 FL (7.4-10.4); MONOCYTES # (AUTO) 0.5 X10'3 (0-0.9); MONOCYTES % (AUTO) 3.8 % (2-12); NEUTROPHILS # (AUTO) 10.9 X10'3 (1.8-7.7); NEUTROPHILS % (AUTO) 88.6 % (42-75); PLATELET COUNT 155 X10'3 (140-440); RED BLOOD COUNT 4.01 X10'6 (4.20-5.60); RED CELL DISTRIBUTION WIDTH 17.2 % (11.5-14.5); WHITE BLOOD COUNT 12.3 X10'3 (4.5-11.0)
[2020-03-24 05:28] LABS: ALBUMIN 1.6 G/DL (3.4-5.0); ANION GAP 11 (8-16); BLOOD UREA NITROGEN 56 MG/DL (7-18); BUN/CREATININE RATIO 26.9 (6.6-38.0); CALCIUM 7.2 MG/DL (8.5-10.1); CHLORIDE 101 MMOL/L (99-107); CREATININE 2.08 MG/DL (0.40-0.90); GLUCOSE 71 MG/DL (70-104); MAGNESIUM 1.8 MG/DL (1.5-2.4); POTASSIUM 3.5 MMOL/L (3.5-5.1); SODIUM 132 MMOL/L (135-145); eGFR 26 ML/MIN
--- NOTE | 2020-03-24 05:30 | NUR ---
Patient complaining of mouth rawness and discomfort and uncontrolled pain with current morphine dose of 0.5mg IV. Halima hospitalist. Awaiting any new orders at this time Addendum: 03/24/20 at 0531 by Rachana Dey RN 3025A Zeb, Dx-Sepsis, complaining of mouth irritation and uncontrolled pn. Can we get some clorahex rinse and a possible increase in morphine dose? Rachana [phone]
[2020-03-24 07:00] VITALS: BP 101/63
[2020-03-24] MEDS: K and/or MAG REPLACEMENT MC SCH ×2 (08:00→20:00)
[2020-03-24] MEDS: CefTRIAXone/D5W-Rocephin 1gm 50 ML IV SCH (09:50)
[2020-03-24] MEDS: pantoprazole 40mg Tablet.DR PO SCH (09:50)
[2020-03-24] MEDS: heparin, porcine 5000 units/ml vial SQ SCH ×2 (09:51→20:41)
[2020-03-24 11:00] VITALS: BP 104/64
[2020-03-24] MEDS ORDERED: vancomycin/NS 1 GM ADD-VANTAGE 250 ML IV ONE (11:20)
--- NOTE | 2020-03-24 12:54 | NUR ---
Nutrition Consult "hard time eating, homeless, and septic wounds": Pt admit DX sepsis from urine, KARI, and meth/heroin abuse per EMR. BLE dry, small scabs w/ no wounds noted at this time per EMR. Currently receiving soft to chew/carb controlled diet though no hx DM and TG 148 on admit. LBM noted 03/18. REFUGIO d/w RN regarding diet change to heart healthy and routine bowel care if MD agreeable. PO 50-75% first meals decent PO; partially meeting needs though no scaled wt noted at this time. RD recommends ensure high protein BIDBD; MD notified. Will continue to monitor for additional protein needs. Rec: 1. advance diet as medically indicated to heart healthy/soft to chew foods; no hx DM on carb controlled diet 2. ensure high protein BIDBD 3. routine bowel care 4. weekly wts Addendum: 03/24/20 at [address] Amended: Links added.
[2020-03-24 15:00] VITALS: BP 122/67
[2020-03-24] MEDS: morphine 2 MG/ML inj. syringe IV PRN ×2 (16:09→20:43)
[2020-03-24 17:01] LABS: % IRON SATURATION 25 % (11-46); IRON 29 UG/DL (49-151); TOTAL IRON BINDING CAPACITY 116 UG/DL (259-388)
[2020-03-24 18:00] VITALS: BP 118/65
--- NOTE | 2020-03-24 18:00 | NUR ---
Problems reprioritized. Patient report given, questions answered & plan of care reviewed with Laura WILLETT.
--- NOTE | 2020-03-24 18:38 | NUR ---
Patient in room PCU 3025. I have received report from Sarah WILLETT and had the opportunity to ask questions and assume patient care.
[2020-03-24 22:00] VITALS: BP 118/65
[2020-03-25 02:00] VITALS: BP 131/79
[2020-03-25] MEDS: morphine 2 MG/ML inj. syringe IV PRN ×2 (02:25→09:04)
[2020-03-25] MEDS: normal saline 1000ml 1,000 ML IV SCH ×4 (02:26→19:25)
[2020-03-25] MEDS: acetaminophen 325mg tablet PO PRN ×2 (02:26→22:37)
[2020-03-25] MEDS ORDERED: VANCOMYCIN LEVEL IV SCH (03:00)
[2020-03-25 03:01] LABS: BASOPHILS # (AUTO) 0.1 X10'3 (0-0.2); BASOPHILS % (AUTO) 0.7 % (0-1); EOSINOPHILS % (AUTO) 0 % (0-6); HEMATOCRIT 26.9 % (35.0-45.0); HEMOGLOBIN 8.9 g/dl (12.0-16.0); LYMPHOCYTES # (AUTO) 0.8 X10'3 (1.1-4.8); LYMPHOCYTES % (AUTO) 8.4 % (21-51); MEAN CORPUSCULAR HEMOGLOBIN 24.9 PG (27.0-31.0); MEAN CORPUSCULAR HGB CONC 33.2 g/dL (33.0-36.5); MEAN CORPUSCULAR VOLUME 75.2 FL (78-98); MEAN PLATELET VOLUME 8.6 FL (7.4-10.4); MONOCYTES # (AUTO) 0.6 X10'3 (0-0.9); MONOCYTES % (AUTO) 6.3 % (2-12); NEUTROPHILS # (AUTO) 8.6 X10'3 (1.8-7.7); NEUTROPHILS % (AUTO) 84.6 % (42-75); PLATELET COUNT 178 X10'3 (140-440); RED BLOOD COUNT 3.58 X10'6 (4.20-5.60); RED CELL DISTRIBUTION WIDTH 17.3 % (11.5-14.5); WHITE BLOOD COUNT 10.1 X10'3 (4.5-11.0)
[2020-03-25 03:11] LABS: ALBUMIN 1.4 G/DL (3.4-5.0); ANION GAP 9 (8-16); BLOOD UREA NITROGEN 32 MG/DL (7-18); BUN/CREATININE RATIO 29.4 (6.6-38.0); CALCIUM 7.5 MG/DL (8.5-10.1); CHLORIDE 103 MMOL/L (99-107); CREATININE 1.09 MG/DL (0.40-0.90); GLUCOSE 99 MG/DL (70-104); MAGNESIUM 1.6 MG/DL (1.5-2.4); POTASSIUM 3.6 MMOL/L (3.5-5.1); SODIUM 133 MMOL/L (135-145); TOTAL CARBON DIOXIDE 21.5 MMOL/L (24-32); VANCOMYCIN,TROUGH 14.3 UG/ML (6.0-14.0); eGFR 54 ML/MIN
[2020-03-25 06:00] VITALS: BP 115/77
--- NOTE | 2020-03-25 06:11 | NUR ---
Problems reprioritized. Patient report given, questions answered & plan of care reviewed with Maame WLILETT. Patient stable at transfer of care. All current needs met
--- NOTE | 2020-03-25 06:39 | NUR ---
Patient in room PCU 3026A. I have received report from Rachana WILLETT and had the opportunity to ask questions and assume patient care.
[2020-03-25] MEDS: K and/or MAG REPLACEMENT MC SCH ×2 (08:00→20:00)
[2020-03-25] MEDS: pantoprazole 40mg Tablet.DR PO SCH (08:58)
[2020-03-25] MEDS: CefTRIAXone/D5W-Rocephin 1gm 50 ML IV SCH (09:02)
[2020-03-25] MEDS: heparin, porcine 5000 units/ml vial SQ SCH ×2 (09:03→22:21)
[2020-03-25] MEDS: vancomycin/NS 1 GM ADD-VANTAGE 250 ML IV SCH ×2 (09:57→22:21)
[2020-03-25 11:00] VITALS: BP 117/85
[2020-03-25] MEDS: lactose-reduced food (Ensure High Protein) 237ml bottle PO SCH ×3 (13:00→19:00)
--- NOTE | 2020-03-25 13:09 | NUR ---
PAGER ID: [phone] MESSAGE: Maame bowman [phone]. RE Magaly Blank [id number]. Pt on carb control diet, no DM can we cancel that? Also patient no longer on tele, do you want tele or tx to surg? Thanks!
[2020-03-25 15:00] VITALS: BP 132/87
[2020-03-25] MEDS: HYDROcodone/acetaminophen 10/325mg tab PO PRN ×2 (15:04→22:23)
[2020-03-25 18:00] VITALS: BP 141/95
--- NOTE | 2020-03-25 18:20 | NUR ---
Problems reprioritized. Patient report given, questions answered & plan of care reviewed with Rachana WILLETT.
--- NOTE | 2020-03-25 18:55 | NUR ---
Student documentation: I have reviewed and agree with all interventions, assessments performed and documented by Cem. Student Medication Administration: For this medication-pass time frame, all medication were reviewed, dispensed, administered and documented per hospital policy by Cem.
[2020-03-25 22:00] VITALS: BP 150/96
[2020-03-25] MEDS: lactobacillus rhamnosus 10,000 MMU CELLS/CAPSULE PO SCH (22:22)
[2020-03-26] MEDS: normal saline 1000ml 1,000 ML IV SCH ×3 (03:58→22:08)
[2020-03-26] MEDS: HYDROcodone/acetaminophen 10/325mg tab PO PRN ×3 (05:06→19:44)
[2020-03-26 05:12] LABS: BASOPHILS % (AUTO) 0.2 % (0-1); EOSINOPHILS % (AUTO) 0.3 % (0-6); HEMATOCRIT 28.2 % (35.0-45.0); LYMPHOCYTES # (AUTO) 0.9 X10'3 (1.1-4.8); LYMPHOCYTES % (AUTO) 8.4 % (21-51); MEAN CORPUSCULAR HEMOGLOBIN 23.8 PG (27.0-31.0); MEAN CORPUSCULAR HGB CONC 31.8 g/dL (33.0-36.5); MEAN CORPUSCULAR VOLUME 74.8 FL (78-98); MEAN PLATELET VOLUME 8.4 FL (7.4-10.4); MONOCYTES # (AUTO) 0.9 X10'3 (0-0.9); MONOCYTES % (AUTO) 8.2 % (2-12); NEUTROPHILS # (AUTO) 9.1 X10'3 (1.8-7.7); NEUTROPHILS % (AUTO) 82.9 % (42-75); PLATELET COUNT 174 X10'3 (140-440); RED BLOOD COUNT 3.77 X10'6 (4.20-5.60); RED CELL DISTRIBUTION WIDTH 17.3 % (11.5-14.5)
[2020-03-26 05:34] LABS: ALBUMIN 1.3 G/DL (3.4-5.0); ANION GAP 8 (8-16); BLOOD UREA NITROGEN 17 MG/DL (7-18); BUN/CREATININE RATIO 22.7 (6.6-38.0); CALCIUM 7.7 MG/DL (8.5-10.1); CHLORIDE 106 MMOL/L (99-107); CREATININE 0.75 MG/DL (0.40-0.90); GLUCOSE 87 MG/DL (70-104); MAGNESIUM 1.4 MG/DL (1.5-2.4); POTASSIUM 3.9 MMOL/L (3.5-5.1); SODIUM 137 MMOL/L (135-145); TOTAL CARBON DIOXIDE 22.6 MMOL/L (24-32); eGFR 83 ML/MIN
[2020-03-26 05:55] LABS: VANCOMYCIN,TROUGH 20.2 UG/ML (6.0-14.0)
[2020-03-26 06:00] VITALS: BP 133/79
--- NOTE | 2020-03-26 06:03 | NUR ---
Problems reprioritized. Patient report given, questions answered & plan of care reviewed with Maame WILLETT. Patient stable at transfwer of care.
--- NOTE | 2020-03-26 06:20 | NUR ---
Patient in room PCU 2392X. I have received report from Rachana WILLETT and had the opportunity to ask questions and assume patient care. Patient laying in bed, drowsy but awake, able to answer questions, no signs of distress, no complaints at this time, will continue to monitor.
[2020-03-26] MEDS: K and/or MAG REPLACEMENT MC SCH ×3 (08:00→19:38)
[2020-03-26] MEDS: pantoprazole 40mg Tablet.DR PO SCH (08:51)
[2020-03-26] MEDS: vancomycin/NS 1 GM ADD-VANTAGE 250 ML IV SCH (08:51)
[2020-03-26] MEDS: lactobacillus rhamnosus 10,000 MMU CELLS/CAPSULE PO SCH ×2 (08:51→19:42)
[2020-03-26] MEDS: heparin, porcine 5000 units/ml vial SQ SCH ×2 (08:52→19:45)
[2020-03-26 11:00] VITALS: BP 137/81
[2020-03-26] MEDS ORDERED: potassium Cl 20 mEq SR tablet PO PRN ×2 (11:10)
[2020-03-26] MEDS ORDERED: magnesium 2GM in 50ml NS 50 ML IV PRN (11:10)
[2020-03-26] MEDS ORDERED: potassium CL 10mEq/100ml bag 100 ML IV PRN (11:10)
[2020-03-26] MEDS ORDERED: magnesium 4gm in 100ml NS 100 ML IV PRN (11:10)
--- NOTE | 2020-03-26 11:57 | NUR ---
PAGER ID: [phone] MESSAGE: Maame bowman [phone]. Magaly Gambino 3025A. FYI second blood culture today is positive, aerobic gram + cocci clusters.
[2020-03-26] MEDS: lactose-reduced food (Ensure High Protein) 237ml bottle PO SCH ×2 (13:10→18:00)
[2020-03-26 15:00] VITALS: BP 138/91
[2020-03-26 18:00] VITALS: BP 144/91
--- NOTE | 2020-03-26 18:29 | NUR ---
Problems reprioritized. Patient report given, questions answered & plan of care reviewed with Beata WILLETT.
--- NOTE | 2020-03-26 18:42 | NUR ---
I have received report from Maame Delgadillo and had the opportunity to ask questions and assume patient care.
[2020-03-26] MEDS: linezolid 600mg tablet PO SCH (19:42)
[2020-03-26] MEDS: magnesium Cl slow-release 64mg tablet PO PRN (19:43)
[2020-03-26] MEDS ORDERED: VANCOMYCIN LEVEL IV ONE (20:30)
[2020-03-26 23:00] VITALS: BP 138/92
[2020-03-27] MEDS: normal saline 1000ml 1,000 ML IV SCH ×2 (01:03→18:08)
[2020-03-27 02:00] VITALS: BP 131/93
[2020-03-27 05:27] LABS: BASOPHILS % (AUTO) 0.2 % (0-1); EOSINOPHILS % (AUTO) 0.4 % (0-6); HEMATOCRIT 27.8 % (35.0-45.0); HEMOGLOBIN 9.1 g/dl (12.0-16.0); LYMPHOCYTES % (AUTO) 12.4 % (21-51); MEAN CORPUSCULAR HEMOGLOBIN 24.7 PG (27.0-31.0); MEAN CORPUSCULAR HGB CONC 32.8 g/dL (33.0-36.5); MEAN CORPUSCULAR VOLUME 75.2 FL (78-98); MEAN PLATELET VOLUME 8.3 FL (7.4-10.4); MONOCYTES # (AUTO) 0.7 X10'3 (0-0.9); MONOCYTES % (AUTO) 8.3 % (2-12); NEUTROPHILS # (AUTO) 6.6 X10'3 (1.8-7.7); NEUTROPHILS % (AUTO) 78.7 % (42-75); PLATELET COUNT 186 X10'3 (140-440); RED CELL DISTRIBUTION WIDTH 17.2 % (11.5-14.5); WHITE BLOOD COUNT 8.4 X10'3 (4.5-11.0)
[2020-03-27 06:00] VITALS: BP 156/101
[2020-03-27 06:02] LABS: ALBUMIN 1.3 G/DL (3.4-5.0); ANION GAP 7 (8-16); BLOOD UREA NITROGEN 11 MG/DL (7-18); CALCIUM 7.2 MG/DL (8.5-10.1); CHLORIDE 104 MMOL/L (99-107); CREATININE 0.58 MG/DL (0.40-0.90); GLUCOSE 89 MG/DL (70-104); MAGNESIUM 1.3 MG/DL (1.5-2.4); POTASSIUM 4.3 MMOL/L (3.5-5.1); SODIUM 135 MMOL/L (135-145); TOTAL CARBON DIOXIDE 24.3 MMOL/L (24-32); eGFR > 90 ML/MIN
--- NOTE | 2020-03-27 06:25 | NUR ---
Patient in room PCU 3025. I have received report from TAMIE Cota and had the opportunity to ask questions and assume patient care.
--- NOTE | 2020-03-27 06:29 | NUR ---
Problems reprioritized. Patient report given, questions answered & plan of care reviewed with Nicole WILLETT.
[2020-03-27] MEDS: linezolid 600mg tablet PO SCH ×2 (07:37→19:32)
[2020-03-27] MEDS: pantoprazole 40mg Tablet.DR PO SCH (07:37)
[2020-03-27] MEDS: lactobacillus rhamnosus 10,000 MMU CELLS/CAPSULE PO SCH ×2 (07:37→19:33)
[2020-03-27] MEDS: heparin, porcine 5000 units/ml vial SQ SCH ×2 (07:40→19:31)
[2020-03-27] MEDS: HYDROcodone/acetaminophen 10/325mg tab PO PRN ×3 (07:42→21:37)
[2020-03-27] MEDS: lactose-reduced food (Ensure High Protein) 237ml bottle PO SCH ×3 (08:00→18:00)
[2020-03-27] MEDS: K and/or MAG REPLACEMENT MC SCH ×3 (08:00→20:00)
[2020-03-27 11:00] VITALS: BP 145/100
[2020-03-27 15:00] VITALS: BP 143/91
--- NOTE | 2020-03-27 15:20 | NUR ---
Clintonyvox consult: Pt seen at bedside provided with low tyramine nutrition therapy education with RD contact information. Pt on a full liquid diet with documented 25-50% PO intake not meeting nutrient needs though with average 50-75% PO intake of Ensure High Protein TID. Pt reports large sores on tongue and requests alternating milkshakes and smoothies with meals and no orange juice with meals. Food preferences were d/w dietary. [facility] 03/26. Will continue to follow closely. Rec: 1. advance diet as medically indicated to regular/soft to chew foods; no hx DM prev on carb controlled diet 2. ensure high protein TID; no orange juice; alternate smoothies and shakes with meals 3. routine bowel care 4. weekly scaled wts Addendum: 03/27/20 at [address] Amended: Links added.
[2020-03-27] MEDS ORDERED: benzocaine (Anbesol) 12ml bottle MM PRN (15:30)
[2020-03-27 18:00] VITALS: BP 146/87
--- NOTE | 2020-03-27 18:15 | NUR ---
Problems reprioritized. Patient report given, questions answered & plan of care reviewed with Vicente RN.
--- NOTE | 2020-03-27 18:30 | NUR ---
Patient in room PCU 3025. I have received report from Nicole WILLETT and had the opportunity to ask questions and assume patient care.
[2020-03-27] MEDS: vancomycin/NS 1 GM ADD-VANTAGE 250 ML IV SCH (19:37)
[2020-03-27] MEDS ORDERED: vancomycin 1,000mg inj IV SCH (20:00)
[2020-03-27] MEDS: magnesium Cl slow-release 64mg tablet PO PRN (21:38)
[2020-03-27] MEDS: valacyclovir 500mg tablet PO SCH (21:42)
[2020-03-27 21:58] LABS: HIV ANTIBODY 1&2 RAPID NON-REACTIVE (Neg)
[2020-03-27 22:00] VITALS: BP 142/82
[2020-03-28] VITALS (8 sets, daily range): BP systolic 137–147; BP diastolic 80–105
--- NOTE | 2020-03-28 00:19 | NUR ---
Student documentation: I have reviewed and agree with all interventions, assessments performed and documented by Daiana student RN.
[2020-03-28] MEDS: HYDROcodone/acetaminophen 10/325mg tab PO PRN ×3 (04:56→19:35)
[2020-03-28 05:49] LABS: MAGNESIUM 1.4 MG/DL (1.5-2.4); POTASSIUM 4.1 MMOL/L (3.5-5.1)
--- NOTE | 2020-03-28 06:15 | NUR ---
Problems reprioritized. Patient report given, questions answered & plan of care reviewed with Edgar WILLETT. Addendum: 03/28/20 at 0616 by Eddie Aguilera RN report given to ALEYDA WILLETT
--- NOTE | 2020-03-28 06:17 | NUR ---
Patient in room PCU 3025. I have received report from TAMIE Zhang and had the opportunity to ask questions and assume patient care.
--- NOTE | 2020-03-28 07:21 | NUR ---
notified. PAGER ID: [phone] MESSAGE: Re; Shameka Blank. Previous blood culture resulted MRSA in blood. FYI. Thanks. Nicole Wall [phone]
[2020-03-28] MEDS: lactobacillus rhamnosus 10,000 MMU CELLS/CAPSULE PO SCH ×2 (07:41→19:35)
[2020-03-28] MEDS: valacyclovir 500mg tablet PO SCH (07:41)
[2020-03-28] MEDS: pantoprazole 40mg Tablet.DR PO SCH (07:41)
[2020-03-28] MEDS: heparin, porcine 5000 units/ml vial SQ SCH ×2 (07:42→19:39)
[2020-03-28] MEDS: linezolid 600mg tablet PO SCH ×2 (07:43→19:53)
[2020-03-28] MEDS: vancomycin/NS 1 GM ADD-VANTAGE 250 ML IV SCH ×2 (07:45→19:37)
[2020-03-28] MEDS: lactose-reduced food (Ensure High Protein) 237ml bottle PO SCH ×3 (07:49→18:00)
[2020-03-28] MEDS: normal saline 1000ml 1,000 ML IV SCH ×2 (07:49→14:08)
[2020-03-28] MEDS: K and/or MAG REPLACEMENT MC SCH ×2 (08:00→20:00)
[2020-03-28 17:41] LABS: GLUCOSE,BODY FLUID 86 MG/DL; LDH,BODY FLUID 590 U/L; TOTAL PROTEIN,BODY FLUID 2.5 G/DL
--- NOTE | 2020-03-28 17:43 | NUR ---
notified. PAGER ID: [phone] MESSAGE: [phone]. Abhay Myles. IR placed chest tube. 850ml out in first hour. Patient requesting pain med for breakthrough pain, currently 04/04. Thanks. Nicole Wall [phone]
[2020-03-28 17:45] LABS: BF RBC COUNT 3025 /CU MM; BF WBC COUNT 335 /CU MM (0-1000); BFAPPEAR CLOUDY; BFCOLOR YELLOW; BFVOLUME 60 ML; LYMPHOCYTES,BODY FLUID 17 %; MONOCYTES,BODY FLUID 2 %; NEUTROPHILS,BODY FLUID 81 %
--- NOTE | 2020-03-28 18:28 | NUR ---
Patient in room PCU 3019. I have received report from Nicole WILLETT and had the opportunity to ask questions and assume patient care.
--- NOTE | 2020-03-28 18:34 | NUR ---
Problems reprioritized. Patient report given, questions answered & plan of care reviewed with TAMIE Mazariegos.
[2020-03-28] MEDS: magnesium Cl slow-release 64mg tablet PO PRN (19:53)
--- NOTE | 2020-03-28 22:30 | NUR ---
Paged MD zuñiga regarding unrelieved pain despite current medications and no CBC or metabolic panel ordered. PAGER ID: [phone] MESSAGE: Re: Elie Basilio. Pt experiencing pain unrelieved from Norco10. Also, no CBC or BMP ordered. Do you want labs added?
[2020-03-28] MEDS: morphine 2 MG/ML inj. syringe IV PRN (22:51)
[2020-03-28] MEDS ORDERED: NO HOME MEDS MC (23:05)
[2020-03-29] MEDS: normal saline 1000ml 1,000 ML IV SCH ×3 (00:27→20:17)
[2020-03-29 02:00] VITALS: BP 130/88
--- NOTE | 2020-03-29 03:13 | NUR ---
Lab called for positive blood culture for gram positive cocci & clusters in aerobic bottle from right hand source from 03/28/20 at 0444. MD is aware and ordered echocardiogram for AM.
[2020-03-29] MEDS: morphine 2 MG/ML inj. syringe IV PRN ×3 (05:26→19:58)
[2020-03-29 05:57] LABS: BASOPHILS # (AUTO) 0.1 X10'3 (0-0.2); BASOPHILS % (AUTO) 0.6 % (0-1); EOSINOPHILS % (AUTO) 0.3 % (0-6); HEMATOCRIT 24.8 % (35.0-45.0); HEMOGLOBIN 7.9 g/dl (12.0-16.0); LYMPHOCYTES # (AUTO) 1.1 X10'3 (1.1-4.8); LYMPHOCYTES % (AUTO) 11.1 % (21-51); MEAN CORPUSCULAR HEMOGLOBIN 24.2 PG (27.0-31.0); MEAN CORPUSCULAR VOLUME 75.7 FL (78-98); MEAN PLATELET VOLUME 8.3 FL (7.4-10.4); MONOCYTES # (AUTO) 0.5 X10'3 (0-0.9); MONOCYTES % (AUTO) 4.4 % (2-12); NEUTROPHILS # (AUTO) 8.6 X10'3 (1.8-7.7); NEUTROPHILS % (AUTO) 83.6 % (42-75); PLATELET COUNT 270 X10'3 (140-440); RED BLOOD COUNT 3.28 X10'6 (4.20-5.60); RED CELL DISTRIBUTION WIDTH 17.4 % (11.5-14.5); WHITE BLOOD COUNT 10.3 X10'3 (4.5-11.0)
[2020-03-29 05:58] LABS: ALBUMIN 1.1 G/DL (3.4-5.0); ANION GAP 6 (8-16); BLOOD UREA NITROGEN 8 MG/DL (7-18); BUN/CREATININE RATIO 15.1 (6.6-38.0); CALCIUM 6.9 MG/DL (8.5-10.1); CHLORIDE 104 MMOL/L (99-107); CREATININE 0.53 MG/DL (0.40-0.90); GLUCOSE 108 MG/DL (70-104); MAGNESIUM 1.4 MG/DL (1.5-2.4); POTASSIUM 4.3 MMOL/L (3.5-5.1); SODIUM 134 MMOL/L (135-145); TOTAL CARBON DIOXIDE 24.4 MMOL/L (24-32); eGFR > 90 ML/MIN
[2020-03-29 06:00] VITALS: BP 142/94
[2020-03-29] MEDS ORDERED: VANCOMYCIN LEVEL IV ONE (06:30)
--- NOTE | 2020-03-29 06:39 | NUR ---
Problems reprioritized. Patient report given, questions answered & plan of care reviewed with Nayely WILLETT.
[2020-03-29] MEDS: K and/or MAG REPLACEMENT MC SCH ×2 (08:12→20:00)
[2020-03-29] MEDS: heparin, porcine 5000 units/ml vial SQ SCH ×2 (08:25→19:56)
[2020-03-29] MEDS: lactobacillus rhamnosus 10,000 MMU CELLS/CAPSULE PO SCH ×2 (08:26→19:56)
[2020-03-29] MEDS: pantoprazole 40mg Tablet.DR PO SCH (08:26)
[2020-03-29] MEDS: lactose-reduced food (Ensure High Protein) 237ml bottle PO SCH ×3 (08:26→17:59)
[2020-03-29] MEDS: VANCOmycin 1250MG/NS 250ml Bag 250 ML IV SCH ×2 (09:57→20:57)
[2020-03-29] MEDS: linezolid 600mg tablet PO SCH ×2 (09:57→19:56)
[2020-03-29 11:00] VITALS: BP 137/94
[2020-03-29 15:00] VITALS: BP 145/92
[2020-03-29 18:00] VITALS: BP 142/91
--- NOTE | 2020-03-29 18:27 | NUR ---
Problems reprioritized. Patient report given, questions answered & plan of care reviewed with Yair WILLETT.
--- NOTE | 2020-03-29 18:30 | NUR ---
Patient in room PCU 3019. I have received report from Domonique WILLETT and had the opportunity to ask questions and assume patient care.
[2020-03-29 22:00] VITALS: BP 147/94
[2020-03-30] MEDS: HYDROcodone/acetaminophen 10/325mg tab PO PRN ×4 (00:55→23:39)
[2020-03-30] MEDS: normal saline 1000ml 1,000 ML IV SCH ×2 (00:59→15:35)
[2020-03-30 02:00] VITALS: BP 153/98
[2020-03-30] MEDS: morphine 2 MG/ML inj. syringe IV PRN ×3 (04:29→19:03)
[2020-03-30 06:00] VITALS: BP 164/96
--- NOTE | 2020-03-30 06:16 | NUR ---
Patient in room PCU 3019. I have received report from Yair WILLETT and had the opportunity to ask questions and assume patient care.
[2020-03-30 06:17] LABS: BASOPHILS % (AUTO) 0.4 % (0-1); EOSINOPHILS % (AUTO) 0.3 % (0-6); HEMOGLOBIN 8.1 g/dl (12.0-16.0); LYMPHOCYTES # (AUTO) 1.2 X10'3 (1.1-4.8); MEAN CORPUSCULAR HEMOGLOBIN 24.4 PG (27.0-31.0); MEAN CORPUSCULAR HGB CONC 32.4 g/dL (33.0-36.5); MEAN CORPUSCULAR VOLUME 75.2 FL (78-98); MEAN PLATELET VOLUME 7.8 FL (7.4-10.4); MONOCYTES # (AUTO) 0.7 X10'3 (0-0.9); MONOCYTES % (AUTO) 7.3 % (2-12); NEUTROPHILS # (AUTO) 7.9 X10'3 (1.8-7.7); PLATELET COUNT 301 X10'3 (140-440); RED BLOOD COUNT 3.32 X10'6 (4.20-5.60); RED CELL DISTRIBUTION WIDTH 17.6 % (11.5-14.5); WHITE BLOOD COUNT 9.8 X10'3 (4.5-11.0)
--- NOTE | 2020-03-30 06:18 | NUR ---
Patient in room U 3019. I have received report from May WILLETT and had the opportunity to ask questions and assume patient care. Addendum: 03/30/20 at 0619 by Yair Mar RN Problems reprioritized. Patient report given, questions answered & plan of care reviewed with May WILLETT.
[2020-03-30 06:40] LABS: ALBUMIN 1.1 G/DL (3.4-5.0); ANION GAP 8 (8-16); BLOOD UREA NITROGEN 7 MG/DL (7-18); BUN/CREATININE RATIO 13.5 (6.6-38.0); CALCIUM 7.1 MG/DL (8.5-10.1); CHLORIDE 103 MMOL/L (99-107); CREATININE 0.52 MG/DL (0.40-0.90); GLUCOSE 87 MG/DL (70-104); MAGNESIUM 1.6 MG/DL (1.5-2.4); POTASSIUM 3.7 MMOL/L (3.5-5.1); SODIUM 134 MMOL/L (135-145); eGFR > 90 ML/MIN
[2020-03-30] MEDS: K and/or MAG REPLACEMENT MC SCH ×2 (08:00→20:00)
[2020-03-30] MEDS: heparin, porcine 5000 units/ml vial SQ SCH ×2 (08:02→19:01)
[2020-03-30] MEDS: linezolid 600mg tablet PO SCH ×2 (08:03→19:00)
[2020-03-30] MEDS: VANCOmycin 1250MG/NS 250ml Bag 250 ML IV SCH ×2 (08:03→21:30)
[2020-03-30] MEDS: pantoprazole 40mg Tablet.DR PO SCH (08:03)
[2020-03-30] MEDS: lactobacillus rhamnosus 10,000 MMU CELLS/CAPSULE PO SCH ×2 (08:03→19:00)
[2020-03-30] MEDS: lactose-reduced food (Ensure High Protein) 237ml bottle PO SCH ×3 (08:12→18:00)
[2020-03-30 11:00] VITALS: BP 123/84
--- NOTE | 2020-03-30 11:49 | NUR ---
Reassessment: patient now consuming 100% of full liquid with with shakes and smoothies with meals; 25-49% intake of ensure high protein. Pt meeting needs. Pt reports large sores on tongue and requests alternating milkshakes and smoothies with meals. Will follow. Rec: 1. advance diet as medically indicated to regular/soft to chew foods 2. ensure high protein TID; no orange juice; alternate smoothies and shakes with meals 3. routine bowel care 4. weekly scaled wts Addendum: 03/30/20 at [address] Amended: Links added.
[2020-03-30 15:00] VITALS: BP 162/91
[2020-03-30 18:00] VITALS: BP 133/89
--- NOTE | 2020-03-30 18:05 | NUR ---
Problems reprioritized. Patient report given, questions answered & plan of care reviewed with Yair WILLETT.
--- NOTE | 2020-03-30 18:15 | NUR ---
Patient in room PCU 3019. I have received report from May WILLETT and had the opportunity to ask questions and assume patient care.
[2020-03-30] MEDS ORDERED: VANCOMYCIN LEVEL IV ONE (20:30)
[2020-03-30 22:00] VITALS: BP 142/91
[2020-03-31 02:00] VITALS: BP 131/89
[2020-03-31] MEDS: normal saline 1000ml 1,000 ML IV SCH ×3 (03:45→22:08)
[2020-03-31 05:40] LABS: BASOPHILS # (AUTO) 0.1 X10'3 (0-0.2); BASOPHILS % (AUTO) 0.8 % (0-1); EOSINOPHILS % (AUTO) 0.4 % (0-6); HEMATOCRIT 23.1 % (35.0-45.0); HEMOGLOBIN 7.4 g/dl (12.0-16.0); LYMPHOCYTES # (AUTO) 1.1 X10'3 (1.1-4.8); LYMPHOCYTES % (AUTO) 10.4 % (21-51); MEAN CORPUSCULAR HEMOGLOBIN 24.1 PG (27.0-31.0); MEAN CORPUSCULAR HGB CONC 31.9 g/dL (33.0-36.5); MEAN CORPUSCULAR VOLUME 75.5 FL (78-98); MEAN PLATELET VOLUME 7.7 FL (7.4-10.4); MONOCYTES # (AUTO) 0.6 X10'3 (0-0.9); MONOCYTES % (AUTO) 5.9 % (2-12); NEUTROPHILS % (AUTO) 82.5 % (42-75); PLATELET COUNT 377 X10'3 (140-440); RED BLOOD COUNT 3.06 X10'6 (4.20-5.60); RED CELL DISTRIBUTION WIDTH 17.5 % (11.5-14.5)
[2020-03-31 06:00] VITALS: BP 133/93
[2020-03-31 06:06] LABS: ANION GAP 5 (8-16); BLOOD UREA NITROGEN 10 MG/DL (7-18); CALCIUM 7.2 MG/DL (8.5-10.1); CHLORIDE 105 MMOL/L (99-107); CREATININE 0.77 MG/DL (0.40-0.90); GLUCOSE 84 MG/DL (70-104); MAGNESIUM 1.4 MG/DL (1.5-2.4); POTASSIUM 3.9 MMOL/L (3.5-5.1); SODIUM 135 MMOL/L (135-145); TOTAL CARBON DIOXIDE 24.8 MMOL/L (24-32); eGFR 81 ML/MIN
--- NOTE | 2020-03-31 06:23 | NUR ---
Patient in room PCU 3019. I have received report from Yair WILLETT and had the opportunity to ask questions and assume patient care.
--- NOTE | 2020-03-31 06:23 | NUR ---
Problems reprioritized. Patient report given, questions answered & plan of care reviewed with May WILLETT.
[2020-03-31] MEDS: heparin, porcine 5000 units/ml vial SQ SCH ×2 (07:41→20:54)
[2020-03-31] MEDS: morphine 2 MG/ML inj. syringe IV PRN ×2 (07:42→15:41)
[2020-03-31] MEDS: lactobacillus rhamnosus 10,000 MMU CELLS/CAPSULE PO SCH ×2 (07:42→20:53)
[2020-03-31] MEDS: pantoprazole 40mg Tablet.DR PO SCH (07:42)
[2020-03-31] MEDS: linezolid 600mg tablet PO SCH ×2 (07:42→20:53)
[2020-03-31] MEDS: lactose-reduced food (Ensure High Protein) 237ml bottle PO SCH ×3 (07:43→18:09)
[2020-03-31] MEDS: K and/or MAG REPLACEMENT MC SCH ×2 (07:48→20:00)
[2020-03-31 08:19] LABS: HBSAG SCREEN Negative (Negative); HEP A AB, IGM Negative (Negative); HEPATITIS C ANTIBODY 3.8 s/co ratio (0.0-0.9)
[2020-03-31] MEDS: HYDROcodone/acetaminophen 10/325mg tab PO PRN ×2 (10:43→21:54)
[2020-03-31 11:00] VITALS: BP 135/97
[2020-03-31 15:49] VITALS: BP 143/96
[2020-03-31 18:00] VITALS: BP 143/96
--- NOTE | 2020-03-31 18:46 | NUR ---
Problems reprioritized. Patient report given, questions answered & plan of care reviewed with PAt RN.
[2020-03-31 22:00] VITALS: BP 157/88
[2020-03-31] MEDS ORDERED: magnesium Cl slow-release 64mg tablet PO PRN (23:35)
[2020-04-01] MEDS: morphine 2 MG/ML inj. syringe IV PRN ×4 (00:04→21:05)
[2020-04-01 02:00] VITALS: BP 145/96
[2020-04-01] MEDS: normal saline 1000ml 1,000 ML IV SCH ×2 (05:11→18:02)
[2020-04-01 05:48] LABS: MAGNESIUM 1.5 MG/DL (1.5-2.4); POTASSIUM 3.7 MMOL/L (3.5-5.1)
[2020-04-01 06:00] VITALS: BP 178/107
--- NOTE | 2020-04-01 06:51 | NUR ---
Patient in room PCU 3019. I have received report from TAMIE Jeronimo and had the opportunity to ask questions and assume patient care.
[2020-04-01] MEDS: K and/or MAG REPLACEMENT MC SCH ×2 (07:01→20:00)
[2020-04-01] MEDS: lactose-reduced food (Ensure High Protein) 237ml bottle PO SCH ×4 (07:30→17:42)
[2020-04-01] MEDS: pantoprazole 40mg Tablet.DR PO SCH (07:45)
[2020-04-01] MEDS: linezolid 600mg tablet PO SCH ×2 (07:45→21:03)
[2020-04-01] MEDS: lactobacillus rhamnosus 10,000 MMU CELLS/CAPSULE PO SCH ×2 (07:45→21:03)
[2020-04-01] MEDS: heparin, porcine 5000 units/ml vial SQ SCH ×2 (07:45→21:03)
[2020-04-01 11:00] VITALS: BP 195/93
[2020-04-01] MEDS: HYDROcodone/acetaminophen 10/325mg tab PO PRN (12:56)
[2020-04-01] MEDS ORDERED: hyDRALAzine 10mg tablet PO PRN (13:50)
[2020-04-01] MEDS ORDERED: furosemide 40mg/4ml inj IV ONE (13:50)
[2020-04-01 15:00] VITALS: BP 145/107
[2020-04-01 18:00] VITALS: BP 147/108
--- NOTE | 2020-04-01 18:07 | NUR ---
Paged Dr. Gallardo about patient being edematous and asked to D/C fluids. Fluids held for now. Patient refusing.
--- NOTE | 2020-04-01 18:22 | NUR ---
Problems reprioritized. Patient report given, questions answered & plan of care reviewed with TAMIE Cota.
[2020-04-01] MEDS ORDERED: VANCOMYCIN LEVEL IV ONE (20:30)
[2020-04-01 22:00] VITALS: BP 163/92
--- NOTE | 2020-04-01 22:49 | NUR ---
I have received report from Gopal WILLETT and had the opportunity to ask questions and assume patient care. Addendum: 04/01/20 at 2250 by Beata Dominguez RN Lizeth WILLETT
[2020-04-02] VITALS (13 sets, daily range): BP systolic 129–183; BP diastolic 71–123
[2020-04-02] MEDS: morphine 2 MG/ML inj. syringe IV PRN ×2 (03:16→11:22)
[2020-04-02 05:50] LABS: BASOPHILS # (AUTO) 0.1 X10'3 (0-0.2); BASOPHILS % (AUTO) 1.3 % (0-1); EOSINOPHILS % (AUTO) 0.3 % (0-6); HEMOGLOBIN 7.2 g/dl (12.0-16.0); LYMPHOCYTES # (AUTO) 1.1 X10'3 (1.1-4.8); LYMPHOCYTES % (AUTO) 14.6 % (21-51); MEAN CORPUSCULAR HEMOGLOBIN 24.7 PG (27.0-31.0); MEAN CORPUSCULAR HGB CONC 33.1 g/dL (33.0-36.5); MEAN CORPUSCULAR VOLUME 74.7 FL (78-98); MEAN PLATELET VOLUME 7.2 FL (7.4-10.4); MONOCYTES # (AUTO) 0.5 X10'3 (0-0.9); MONOCYTES % (AUTO) 6.8 % (2-12); NEUTROPHILS # (AUTO) 5.7 X10'3 (1.8-7.7); PLATELET COUNT 451 X10'3 (140-440); RED BLOOD COUNT 2.91 X10'6 (4.20-5.60); RED CELL DISTRIBUTION WIDTH 17.7 % (11.5-14.5); WHITE BLOOD COUNT 7.4 X10'3 (4.5-11.0)
[2020-04-02] MEDS ORDERED: furosemide 20MG tablet PO ONE (06:00)
[2020-04-02 06:07] LABS: ALBUMIN 1.1 G/DL (3.4-5.0); ANION GAP 5 (8-16); BLOOD UREA NITROGEN 6 MG/DL (7-18); BUN/CREATININE RATIO 11.1 (6.6-38.0); CALCIUM 7.1 MG/DL (8.5-10.1); CHLORIDE 101 MMOL/L (99-107); CREATININE 0.54 MG/DL (0.40-0.90); GLUCOSE 88 MG/DL (70-104); MAGNESIUM 1.3 MG/DL (1.5-2.4); POTASSIUM 3.5 MMOL/L (3.5-5.1); SODIUM 132 MMOL/L (135-145); eGFR > 90 ML/MIN
--- NOTE | 2020-04-02 06:20 | NUR ---
Problems reprioritized. Patient report given, questions answered & plan of care reviewed with Nicole WILLETT.
[2020-04-02 06:25] LABS: HEMATOCRIT 21.7 % (35.0-45.0)
--- NOTE | 2020-04-02 06:25 | NUR ---
Patient in room PCU 3019. I have received report from TAMIE Cota and had the opportunity to ask questions and assume patient care.
[2020-04-02] MEDS: lactose-reduced food (Ensure High Protein) 237ml bottle PO SCH ×2 (07:30→17:30)
[2020-04-02] MEDS: K and/or MAG REPLACEMENT MC SCH ×2 (08:00→20:00)
[2020-04-02] MEDS: HYDROcodone/acetaminophen 10/325mg tab PO PRN ×2 (08:23→22:42)
[2020-04-02] MEDS: heparin, porcine 5000 units/ml vial SQ SCH ×2 (08:24→20:00)
[2020-04-02] MEDS: lactobacillus rhamnosus 10,000 MMU CELLS/CAPSULE PO SCH ×2 (08:24→22:05)
[2020-04-02] MEDS: linezolid 600mg tablet PO SCH (08:24)
[2020-04-02] MEDS: pantoprazole 40mg Tablet.DR PO SCH (08:24)
--- NOTE | 2020-04-02 10:15 | NUR ---
Reassessment: patient with great appetite, eating 75-100% of regular diet with with shakes and smoothies with meals; 25-49% intake of ensure high protein. Pt meeting needs. Will follow. Rec: 1. advance diet as medically indicated to regular 2. ensure high protein TID; no orange juice; alternate smoothies and shakes with meals 3. routine bowel care 4. weekly scaled wts Addendum: 04/02/20 at [address] Amended: Links added.
--- NOTE | 2020-04-02 18:45 | NUR ---
Problems reprioritized. Patient report given, questions answered & plan of care reviewed with TAMIE Alamo.
[2020-04-02] MEDS ORDERED: meperidine/PF 25mg/ml syringe IV PRN ×2 (19:00)
[2020-04-02] MEDS ORDERED: proCHLORperazine 10 MG/2 ml inj IV PRN (19:00)
[2020-04-02] MEDS ORDERED: ringers solution, lacted 1,000 ML IV SCH (19:00)
[2020-04-02] MEDS ORDERED: morphine 4 MG/ML inj SYRINge IV PRN (19:00)
[2020-04-02] MEDS ORDERED: ondansetron/PF 4mg/2ml inj IV PRN (19:00)
[2020-04-02] MEDS ORDERED: morphine 2 MG/ML inj. syringe IV PRN (19:00)
[2020-04-02] MEDS ORDERED: fentaNYL/PF 50MCG/1 ML 2ML syringe ONE ×2 (19:05→19:23)
[2020-04-02] MEDS ORDERED: ketamine 50mg/5ml syringe ONE (19:06)
[2020-04-02] MEDS ORDERED: MIDAZolam 5mg/5ml vial ONE (19:06)
--- NOTE | 2020-04-02 19:26 | NUR ---
RECEIVED FROM OR VIA BED ACCOMPANIED BY ANESTHESIOLOGIST DR MORALES, REPORT GIVEN. PT AWAKE AND ALERT WITH PAIN OF LEVEL 4. 22 GAUGE PIV CECILIA PATENT AND RUNNING LR AT 100 ML/HR. CECILIA AND L CALF DRESSINGS CDI. PPULSES PALPABLE, BRISK CAP REFILL, DALY, VSS, ABD SOFT, SKIN PINK AND WARM. SCDS APPLIED.
[2020-04-02] MEDS ORDERED: labetalol 20mg/4ml (5mg/ml) syringe IV ONE (19:39)
[2020-04-02] MEDS ORDERED: propofol inj 20 ML IV ONE (19:39)
[2020-04-02] MEDS: meperidine/PF 25mg/ml syringe IV PRN ×2 (19:46→19:50)
--- NOTE | 2020-04-02 20:16 | NUR ---
TRANSPORTED VIA VIA BED BED RAILS UP, REPORT GIVEN. PT AWAKE AND ALERT WITH PAIN OF LEVEL 5. 22 GAUGE PIV CECILIA PATENT AND RUNNING NS AT 100 ML/HR. CECILIA AND L CALF DRESSINGS CDI. PPULSES PALPABLE, BRISK CAP REFILL, DALY, VSS, ABD SOFT, SKIN PINK AND WARM. SCDS APPLIED. LEFT IN CARE OF MANUEL WILLETT WITH OXYGEN APPLIED.
[2020-04-03] VITALS (9 sets, daily range): BP systolic 123–145; BP diastolic 80–95
[2020-04-03] MEDS: morphine 2 MG/ML inj. syringe IV PRN ×2 (03:57→19:10)
[2020-04-03 05:39] LABS: MEAN PLATELET VOLUME 7.1 FL (7.4-10.4); WHITE BLOOD COUNT 6.8 X10'3 (4.5-11.0)
[2020-04-03 05:42] LABS: MEAN CORPUSCULAR HEMOGLOBIN 24.3 PG (27.0-31.0); MEAN CORPUSCULAR HGB CONC 32.4 g/dL (33.0-36.5); MEAN CORPUSCULAR VOLUME 75.1 FL (78-98); PLATELET COUNT 423 X10'3 (140-440); RED BLOOD COUNT 2.81 X10'6 (4.20-5.60); RED CELL DISTRIBUTION WIDTH 17.6 % (11.5-14.5)
[2020-04-03 05:52] LABS: HEMATOCRIT 21.1 % (35.0-45.0); HEMOGLOBIN 6.8 g/dl (12.0-16.0)
--- NOTE | 2020-04-03 05:57 | NUR ---
Sent page to Dr. Gallardo- [id number] Shameka Blank. Patient has a critical H&H- 6.8, 21.1. Yesterday was 7.2, 21.7. Cally WILLETT ext [phone]
[2020-04-03 06:11] LABS: ALBUMIN 1.1 G/DL (3.4-5.0); ANION GAP 5 (8-16); BLOOD UREA NITROGEN 10 MG/DL (7-18); BUN/CREATININE RATIO 15.9 (6.6-38.0); CALCIUM 7.4 MG/DL (8.5-10.1); CHLORIDE 101 MMOL/L (99-107); CREATININE 0.63 MG/DL (0.40-0.90); GLUCOSE 109 MG/DL (70-104); MAGNESIUM 1.4 MG/DL (1.5-2.4); POTASSIUM 3.6 MMOL/L (3.5-5.1); SODIUM 135 MMOL/L (135-145); TOTAL CARBON DIOXIDE 29.1 MMOL/L (24-32); eGFR > 90 ML/MIN
--- NOTE | 2020-04-03 06:20 | NUR ---
Patient in room PCU 3019. I have received report from TAMIE Alamo and had the opportunity to ask questions and assume patient care.
--- NOTE | 2020-04-03 06:23 | NUR ---
Problems reprioritized. Patient report given, questions answered & plan of care reviewed with Nicole WILLETT.
[2020-04-03 07:09] LABS: HYPOCHROMASIA 1+; PLATELET ESTIMATE NORMAL; TOTAL CELLS COUNTED 100
[2020-04-03 07:10] LABS: ANISOCYTOSIS 1+; MICROCYTOSIS 1+; POLYCHROMASIA 1+
[2020-04-03] MEDS: lactose-reduced food (Ensure High Protein) 237ml bottle PO SCH ×3 (07:30→18:30)
[2020-04-03] MEDS: K and/or MAG REPLACEMENT MC SCH (08:00)
[2020-04-03] MEDS: pantoprazole 40mg Tablet.DR PO SCH (08:26)
[2020-04-03] MEDS: lactobacillus rhamnosus 10,000 MMU CELLS/CAPSULE PO SCH ×2 (08:26→20:00)
[2020-04-03] MEDS: HYDROcodone/acetaminophen 10/325mg tab PO PRN ×2 (08:26→14:45)
[2020-04-03] MEDS: heparin, porcine 5000 units/ml vial SQ SCH ×2 (08:27→20:00)
--- NOTE | 2020-04-03 17:00 | NUR ---
Called Cecelia LAND to give report. TAMIE Gatica took report. Patient is scheduled for transfer at 1800.
--- NOTE | 2020-04-03 18:30 | NUR ---
Problems reprioritized. Patient report given, questions answered & plan of care reviewed with TAMIE Alamo.
--- NOTE | 2020-04-03 18:35 | NUR ---
Patient in room PCU 3019. I have received report from Nicole WILLETT and had the opportunity to ask questions and assume patient care. Patient will be transferred to [facility] soon. Report was already given and wound pictures were already taken upon arrival.
--- NOTE | 2020-04-03 22:35 | NUR ---
Patient was transported to [facility] by [facility] by ravi. She was stable at time of transfer and all of her belongings were sent with her. She was sad to leave because of the great care that she has been receiving.
== END 2020-04-03 22:45 | DRG 720 ==
LOC: ER 10:19 → ED HOLD 14:44 → EDBEDREQ 15:46 → PCU 3S 16:08
PROVIDERS: ADMIT Internal Medicine; ATTEND Internal Medicine
PROC: 0W9B30Z Drainage of Left Pleural Cavity with Drainage Device, Percutaneous Approach (ICD-10-PCS; 2020-03-28)
PROC: 0W9930Z Drainage of Right Pleural Cavity with Drainage Device, Percutaneous Approach (ICD-10-PCS; 2020-03-28)
PROC: 0H9BXZZ Drainage of Right Upper Arm Skin, External Approach (ICD-10-PCS; 2020-04-02)
PROC: 0H9LXZZ Drainage of Left Lower Leg Skin, External Approach (ICD-10-PCS; principal; 2020-04-02 19:02)
PROC: 30233N1 Transfusion of Nonautologous Red Blood Cells into Peripheral Vein, Percutaneous Approach (ICD-10-PCS; 2020-04-03)
DX: A41.02 Sepsis due to Methicillin resistant Staphylococcus aureus (principal); E43 Unspecified severe protein-calorie malnutrition; D50.9 Iron deficiency anemia, unspecified; E86.0 Dehydration; E87.1 Hypo-osmolality and hyponatremia; E87.2 Acidosis; E87.6 Hypokalemia; F11.10 Opioid abuse, uncomplicated; F15.10 Other stimulant abuse, uncomplicated; K21.9 Gastro-esophageal reflux disease without esophagitis; I33.0 Acute and subacute infective endocarditis; I26.99 Other pulmonary embolism without acute cor pulmonale; B19.20 Unspecified viral hepatitis C without hepatic coma; D63.8 Anemia in other chronic diseases classified elsewhere; I10 Essential (primary) hypertension; N17.9 Acute kidney failure, unspecified; N39.0 Urinary tract infection, site not specified; Z59.0 Homelessness; Z90.49 Acquired absence of other specified parts of digestive tract; Z88.5 Allergy status to narcotic agent; Z20.828 Contact with and (suspected) exposure to other viral communicable diseases; Z68.28 Body mass index [BMI] 28.0-28.9, adult; Z28.21 Immunization not carried out because of patient refusal
CPT/HCPCS: 32557; 36415; 71045; 71250; 78582; 80048; 80053; 80061; 80074; 80202; 80305; 80320; 81001; 81025; 82550; 82553; 82728; 82945; 83540; 83550; 83605; 83615; 83735; 84132; 84145; 84157; 84443; 85007; 85025; 85379; 85384; 85610; 85730; 86140; 86703; 86885; 86900; 86901; 86920; 87040; 87070; 87075; 87077; 87081; 87088; 87102; 87186; 87635; 89051; 93005; 93308; 93970; 93971; 96365; 96367; 96372; 96375; 97110; 97116; 97161; 97530; 99291; A6407; A6446; A6449; A9539; A9540; G0378; J0696; J1644; J1650; J1885; J1940; J2175; J2250; J2270; J2405; J2704; J3010; J3370; J3475; J3490; J7030; P9016

== ENCOUNTER 2021-04-18 14:37 | Inpatient (IN) | payer MEDICAID ==
[~2021-04-18] VITALS: Ht 167.6 cm; Wt 47.7 kg
[~2021-04-18 14:37] MED LIST changes: +NO HOME MEDS; -PANT-47 PO
[2021-04-18] MEDS ORDERED: acetaminophen 325mg tablet PO ONE (15:10)
--- NOTE | 2021-04-18 16:43 | NUR ---
pt is laying in the floor in the rap area. she says its more comfortable. asked the patient to please get off the floor and to sit back in the chair. the pt refused
[2021-04-18 17:53] LABS: BASOPHILS # (AUTO) 0.2 X10'3 (0-0.2); BASOPHILS % (AUTO) 1.2 % (0-1); EOSINOPHILS % (AUTO) 0 % (0-6); HEMATOCRIT 31.1 % (35.0-45.0); HEMOGLOBIN 10.3 g/dl (12.0-16.0); LYMPHOCYTES % (AUTO) 5.3 % (21-51); MEAN CORPUSCULAR HEMOGLOBIN 23.5 PG (27.0-31.0); MEAN CORPUSCULAR HGB CONC 33.2 g/dL (33.0-36.5); MEAN PLATELET VOLUME 7.8 FL (7.4-10.4); MONOCYTES # (AUTO) 0.8 X10'3 (0-0.9); MONOCYTES % (AUTO) 4.5 % (2-12); PLATELET COUNT 516 X10'3 (140-440); RED BLOOD COUNT 4.38 X10'6 (4.20-5.60); RED CELL DISTRIBUTION WIDTH 15.6 % (11.5-14.5)
[2021-04-18] MEDS ORDERED: normal saline 1000ML IV soln IV ONE (18:00)
[2021-04-18 18:06] LABS: ALANINE AMINOTRANSFERASE 37 U/L (12-78); ALBUMIN/GLOBULIN RATIO 0.7 (1.1-1.5); ALKALINE PHOSPHATASE 89 IU/L (46-116); ANION GAP 14 (8-16); ASPARTATE AMINO TRANSFERASE 33 U/L (10-37); BILIRUBIN,TOTAL 0.9 MG/DL (0.1-1.0); BLOOD UREA NITROGEN 22 MG/DL (7-18); BUN/CREATININE RATIO 28.9 (6.6-38.0); CALCIUM 8.8 MG/DL (8.5-10.1); CHLORIDE 90 MMOL/L (99-107); CREATININE 0.76 MG/DL (0.40-0.90); GLUCOSE 99 MG/DL (70-104); MAGNESIUM 2.4 MG/DL (1.5-2.4); POTASSIUM 3.7 MMOL/L (3.5-5.1); SODIUM 125 MMOL/L (135-145); TOTAL CARBON DIOXIDE 21.2 MMOL/L (24-32); TOTAL PROTEIN 7.6 G/DL (6.4-8.2); eGFR 82 ML/MIN
[2021-04-18 19:05] LABS: CLARITY,URINE SLIGHTLY CLOUDY (Clear); COLOR,URINE YELLOW (Yellow); GLUCOSE, URINE NEGATIVE (Neg); KETONES,URINE 15 mg/dl (Neg); LEUKOCYTE ESTERASE ,URINE NEGATIVE (Neg); NITRITES, URINE NEGATIVE (Neg); OCCULT BLOOD,URINE NEGATIVE (Neg); PROTEIN,URINE 30 mg/dl (Neg); UA COLLECTION TYPE STRAIGHT CATH; UROBILINOGEN,URINE 0.2 E.U/dL (0.2-1.0)
[2021-04-18 19:20] LABS: BACTERIA,URINE NONE SEEN /HPF (Neg); MUCUS STRANDS MANY /LPF (Neg); RBC,URINE NONE SEEN /HPF (0-2); RENAL CELLS, URINE FEW /HPF; SQUAMOUS EPITHELIAL CELL,UR NONE SEEN /LPF (FEW); TRANSITIONAL EPI CELLS,URINE FEW /HPF; WBC,URINE 0-4 /HPF (0-4)
[2021-04-18 19:21] LABS: AMORPHOUS URATES 1+; COARSE GRANULAR CAST 0-3 /LPF (NEGATIVE); FINE GRANULAR CAST 0-3 /LPF (NEGATIVE)
[2021-04-18 20:24] LABS: PLATELET ESTIMATE INCREASED; SMUDGE CELLS 1+; TOTAL CELLS COUNTED 100
[2021-04-18 20:25] LABS: ANISOCYTOSIS 1+; HYPOCHROMASIA 1+; MICROCYTOSIS 1+; POLYCHROMASIA FEW; TEAR DROP CELLS FEW
[2021-04-18 20:26] LABS: ELLIPTOCYTES FEW
[2021-04-18] MEDS ORDERED: temazepam 15mg capsule PO PRN (21:00)
[2021-04-18] MEDS: normal saline 1000ml 1,000 ML IV SCH (21:40)
[2021-04-18] MEDS ORDERED: HYDROcodone/acetaminophen 10/325mg tab PO PRN (21:40)
[2021-04-18] MEDS ORDERED: bisacodyl 10mg suppository rectal RC PRN (21:40)
[2021-04-18] MEDS ORDERED: acetaminophen 325mg tablet PO PRN ×2 (21:40)
[2021-04-18] MEDS ORDERED: mag hydrox/Alum hydrox/simeth 30ml oral suspension PO PRN (21:40)
[2021-04-18] MEDS ORDERED: diphenhydrAMINE 50 mg/ml inj IV PRN (21:40)
[2021-04-18] MEDS ORDERED: morphine 2 MG/ML inj. syringe IV PRN ×2 (21:40)
[2021-04-18] MEDS ORDERED: magnesium hydroxide 30ml (MOM) UD suspension PO PRN (21:40)
[2021-04-18] MEDS ORDERED: diphenhydrAMINE 25mg capsule PO PRN (21:40)
[2021-04-18] MEDS ORDERED: HYDROcodone/acetaminophen 5mg/325mg tablet PO PRN (21:40)
[2021-04-18] MEDS ORDERED: acetaminophen 650mg rectal suppository RC PRN (21:40)
[2021-04-18] MEDS ORDERED: ondansetron 4mg rapidly disintigrating tab PO PRN (21:40)
[2021-04-18] MEDS ORDERED: ondansetron/PF 4mg/2ml inj IV PRN (21:40)
[2021-04-19 00:02] LABS: CREATINE KINASE 367 U/L (26-192); PHOSPHORUS 3.9 MG/DL (2.3-4.5)
[2021-04-19 00:03] LABS: LIPASE 247 U/L (73-393)
[2021-04-19 00:30] VITALS: BP 144/90
[2021-04-19 00:46] LABS: HEMOGLOBIN A1C 7.2 % (4.5-6.2)
[2021-04-19] MEDS ORDERED: glucagon, human recombinant 1mg kit SUBCUT PRN (02:40)
[2021-04-19] MEDS ORDERED: MESSAGE TO PHARMACY PO ONE (02:40)
[2021-04-19] MEDS ORDERED: dextrose 50%-water 50ml dispensing syringe IV PRN ×2 (02:40)
[2021-04-19] MEDS ORDERED: insulin Lispro (HumaLOG) vial - multi-dose SQ SCH (02:40)
[2021-04-19] MEDS ORDERED: dextrose ORAL solution 15 GM/59 ML bottle PO PRN ×2 (02:40)
[2021-04-19] MEDS: ipratropium/albuterol 3ml nebule NEB SCH ×6 (03:00→23:00)
[2021-04-19 06:17] LABS: D-DIMER 2.05 MG/L FEU (0-0.50); PARTIAL THROMBOPLASTIN TIME 27 SECONDS (22-32)
[2021-04-19 06:18] LABS: EOSINOPHILS % (AUTO) 0 % (0-6); RED CELL DISTRIBUTION WIDTH 15.2 % (11.5-14.5); WHITE BLOOD COUNT 19.7 X10'3 (4.5-11.0)
[2021-04-19 06:20] LABS: BASOPHILS # (AUTO) 0.3 X10'3 (0-0.2); BASOPHILS % (AUTO) 1.3 % (0-1); HEMATOCRIT 30.1 % (35.0-45.0); LYMPHOCYTES % (AUTO) 4.8 % (21-51); MEAN CORPUSCULAR HEMOGLOBIN 23.6 PG (27.0-31.0); MEAN CORPUSCULAR HGB CONC 33.2 g/dL (33.0-36.5); MEAN CORPUSCULAR VOLUME 71.1 FL (78-98); MONOCYTES # (AUTO) 1.1 X10'3 (0-0.9); MONOCYTES % (AUTO) 5.7 % (2-12); NEUTROPHILS # (AUTO) 17.4 X10'3 (1.8-7.7); NEUTROPHILS % (AUTO) 88.2 % (42-75); PLATELET COUNT 506 X10'3 (140-440); RED BLOOD COUNT 4.23 X10'6 (4.20-5.60)
[2021-04-19 06:24] LABS: ALANINE AMINOTRANSFERASE 35 U/L (12-78); ALBUMIN/GLOBULIN RATIO 0.7 (1.1-1.5); ALKALINE PHOSPHATASE 83 IU/L (46-116); ANION GAP 13 (8-16); ASPARTATE AMINO TRANSFERASE 29 U/L (10-37); BILIRUBIN,TOTAL 0.9 MG/DL (0.1-1.0); BLOOD UREA NITROGEN 22 MG/DL (7-18); BUN/CREATININE RATIO 27.8 (6.6-38.0); CALCIUM 8.6 MG/DL (8.5-10.1); CHLORIDE 94 MMOL/L (99-107); CHOL/HDL RATIO 5.3 (0.00-4.99); CHOLESTEROL 160 MG/DL (0-200); CREATININE 0.79 MG/DL (0.40-0.90); HDL CHOLESTEROL 30 MG/DL (35-60); LDL CHOLESTEROL 106 MG/DL (50-100); SODIUM 128 MMOL/L (135-145); TOTAL CARBON DIOXIDE 21.1 MMOL/L (24-32); TOTAL PROTEIN 7.4 G/DL (6.4-8.2); TRIGLYCERIDES 84 MG/DL (20-135); eGFR 78 ML/MIN
[2021-04-19 06:35] LABS: GLUCOSE 83 MG/DL (70-104)
[2021-04-19 06:40] LABS: POTASSIUM 2.8 MMOL/L (3.5-5.1)
[2021-04-19] MEDS ORDERED: magnesium Cl slow-release 64mg tablet PO PRN (06:45)
[2021-04-19] MEDS ORDERED: magnesium 4gm in 100ml NS 100 ML IV PRN (06:45)
[2021-04-19] MEDS ORDERED: potassium Cl 40MEQ/1/2NS 520ml 520 ML IV PRN (06:45)
[2021-04-19] MEDS ORDERED: potassium Cl 20 mEq SR tablet PO PRN (06:45)
--- NOTE | 2021-04-19 06:46 | NUR ---
CRITICAL POTASSIUM 2.8, DR WALKER CALLED GOT AN ORDER FOR MAG/K PROTOCOL
--- NOTE | 2021-04-19 06:47 | NUR ---
Patient in room [facility]. I have received report from TAMIE PITTS and had the opportunity to ask questions and assume patient care.
[2021-04-19] MEDS: normal saline 1000ml 1,000 ML IV SCH ×2 (07:40→17:40)
[2021-04-19 08:00] VITALS: BP 116/76
[2021-04-19] MEDS: docusate sod 100mg capsule PO SCH ×2 (11:26→21:24)
[2021-04-19] MEDS: carVEDilol 3.125mg tablet PO SCH ×2 (11:27→21:24)
[2021-04-19] MEDS: methylPREDNISolone sod succ/PF 40mg inj. IV SCH (11:27)
[2021-04-19] MEDS: pantoprazole 40mg Tablet.DR PO SCH (11:27)
[2021-04-19] MEDS: losartan 25mg tablet PO SCH (11:27)
[2021-04-19] MEDS: heparin, porcine 5000 units/ml vial SQ SCH ×2 (11:30→21:26)
[2021-04-19] MEDS: potassium Cl 20 mEq SR tablet PO PRN ×3 (11:31→21:25)
[2021-04-19] MEDS: azithromycin/NS 500mg/250ml 250 ML IV SCH (11:34)
[2021-04-19 12:00] VITALS: BP 121/79
[2021-04-19] MEDS: CefTRIAXone/D5W-Rocephin 1gm 50 ML IV SCH (14:52)
--- NOTE | 2021-04-19 16:07 | NUR ---
Malnutrition/DM Consult: Pt admit DX UTI, mild rhabdomyolysis, CHF and COPD exacerbations, L pleural effusion, and new onset T2DM per MD note. Pt hx heroin/meth abuse, homeless, no food/liquids PO for uncertain period of days POSTDOCTORAL FELLOW per EMR. No prior hx DM A1C 7.2 this admit advanced to carb controlled diet w/ PO documentation pending however RN today reports pt sleeping most of the day not eating meals or drinking much. Pt current scaled wt 47.73 kg w/ BMI 17. Pt seen by RD still mostly sleeping though partial wakes to questioning reports unsure of wt hx and does report decreased PO hx POSTDOCTORAL FELLOW though unable to provide specifics. Pt mostly covered during RD visit however has notable moderate temporal and buccal wasting present. Given physical findings pt meets severe malnutrition criteria; MD notified. Pt reports no food preferences at this time; RD encouraged pt to notify RN of food preferences to optimize intake. Glu 63 mg/dl today now WNL not on glycemic protocol; may benefit from return to regular diet if PO remains poor. Will continue to monitor for PO acceptance prior to ONS recs given poor liquid intake as well. Will monitor for additional nutrition intervention needs. Rec: 1. continue carb controlled diet; encourage PO; consider return to regular diet if poor PO persists 2. IF PO liquids intake improves; consider Ensure Enlive TIDWM for nutrition repletion 3. MVI for nutrition repletion 4. routine bowel care 5. weekly wts 6. DM ed once more appropriate this admit following patient notification of new DM DX by physician prior to discharge; A1C 7.2% Addendum: 04/19/21 at [address] Amended: Links added.
[2021-04-19] MEDS: dextrose 5%-1/2 normal saline 1,000 ML IV SCH (17:34)
--- NOTE | 2021-04-19 19:24 | NUR ---
Problems reprioritized. Patient report given, questions answered & plan of care reviewed with JEFFRY TERAN RN.
--- NOTE | 2021-04-19 19:25 | NUR ---
Patient in room [facility]. I have received report from MARCUS WILLETT and had the opportunity to ask questions and assume patient care.
[2021-04-19 20:00] VITALS: BP 119/81
[2021-04-19] MEDS: lactobacillus rhamnosus 10,000 MMU CELLS/CAPSULE PO SCH (21:24)
[2021-04-20] MEDS: ipratropium/albuterol 3ml nebule NEB SCH ×6 (03:00→23:48)
[2021-04-20] MEDS: dextrose 5%-1/2 normal saline 1,000 ML IV SCH ×3 (03:31→22:55)
[2021-04-20] MEDS: normal saline 1000ml 1,000 ML IV SCH ×3 (03:40→23:40)
--- NOTE | 2021-04-20 06:23 | NUR ---
Problems reprioritized. Patient report given, questions answered & plan of care reviewed with MARCUS WILLETT.
--- NOTE | 2021-04-20 06:57 | NUR ---
Patient in room [facility]. I have received report from JEFFRY TERAN RN and had the opportunity to ask questions and assume patient care.
[2021-04-20 07:00] VITALS: BP 117/85
[2021-04-20] MEDS: azithromycin/NS 500mg/250ml 250 ML IV SCH ×2 (07:52→08:00)
[2021-04-20] MEDS: heparin, porcine 5000 units/ml vial SQ SCH ×2 (07:52→21:10)
[2021-04-20] MEDS: pantoprazole 40mg Tablet.DR PO SCH (07:55)
[2021-04-20] MEDS: methylPREDNISolone sod succ/PF 40mg inj. IV SCH ×2 (07:55→08:00)
[2021-04-20] MEDS: carVEDilol 3.125mg tablet PO SCH ×2 (07:55→21:09)
[2021-04-20] MEDS: losartan 25mg tablet PO SCH (07:56)
[2021-04-20] MEDS: lactobacillus rhamnosus 10,000 MMU CELLS/CAPSULE PO SCH ×2 (07:56→21:08)
[2021-04-20] MEDS: CefTRIAXone/D5W-Rocephin 1gm 50 ML IV SCH (08:00)
[2021-04-20] MEDS: docusate sod 100mg capsule PO SCH ×2 (08:00→21:09)
[2021-04-20 08:48] LABS: BASOPHILS % (AUTO) 0.3 % (0-1); RED CELL DISTRIBUTION WIDTH 15.7 % (11.5-14.5)
[2021-04-20 08:49] LABS: EOSINOPHILS % (AUTO) 0.1 % (0-6); HEMATOCRIT 33.5 % (35.0-45.0); HEMOGLOBIN 10.6 g/dl (12.0-16.0); LYMPHOCYTES # (AUTO) 1.7 X10'3 (1.1-4.8); LYMPHOCYTES % (AUTO) 11.7 % (21-51); MEAN CORPUSCULAR HEMOGLOBIN 23.3 PG (27.0-31.0); MEAN CORPUSCULAR HGB CONC 31.7 g/dL (33.0-36.5); MEAN CORPUSCULAR VOLUME 73.4 FL (78-98); MEAN PLATELET VOLUME 7.9 FL (7.4-10.4); MONOCYTES # (AUTO) 0.9 X10'3 (0-0.9); NEUTROPHILS % (AUTO) 81.9 % (42-75); PLATELET COUNT 508 X10'3 (140-440); RED BLOOD COUNT 4.56 X10'6 (4.20-5.60); WHITE BLOOD COUNT 14.7 X10'3 (4.5-11.0)
[2021-04-20 09:40] LABS: ALANINE AMINOTRANSFERASE 24 U/L (12-78); ALBUMIN 2.8 G/DL (3.4-5.0); ALBUMIN/GLOBULIN RATIO 0.6 (1.1-1.5); ALKALINE PHOSPHATASE 72 IU/L (46-116); ANION GAP 8 (8-16); ASPARTATE AMINO TRANSFERASE 17 U/L (10-37); BILIRUBIN,TOTAL 0.5 MG/DL (0.1-1.0); BLOOD UREA NITROGEN 16 MG/DL (7-18); BUN/CREATININE RATIO 23.2 (6.6-38.0); CALCIUM 8.5 MG/DL (8.5-10.1); CHLORIDE 102 MMOL/L (99-107); CREATININE 0.69 MG/DL (0.40-0.90); GLUCOSE 110 MG/DL (70-104); MAGNESIUM 2.4 MG/DL (1.5-2.4); POTASSIUM 5.1 MMOL/L (3.5-5.1); SODIUM 131 MMOL/L (135-145); TOTAL CARBON DIOXIDE 20.7 MMOL/L (24-32); TOTAL PROTEIN 7.2 G/DL (6.4-8.2); eGFR > 90 ML/MIN
[2021-04-20 10:35] LABS: PLATELET ESTIMATE INCREASED
[2021-04-20 10:36] LABS: MICROCYTOSIS 1+
[2021-04-20 10:37] LABS: SCHISTOCYTES 1+
[2021-04-20 11:00] VITALS: BP 140/85
--- NOTE | 2021-04-20 13:40 | NUR ---
1100 svn not given. therapist not available
--- NOTE | 2021-04-20 18:45 | NUR ---
Problems reprioritized. Patient report given, questions answered & plan of care reviewed with JEFFRY TERAN RN.
--- NOTE | 2021-04-20 18:50 | NUR ---
Patient in room [facility]. I have received report from MARCUS WILLETT and had the opportunity to ask questions and assume patient care. PATIENT NEEDS IV ACCESS REPORTED THAT THEY TRIED 6 TIMES WITH DIFFERENT NURSES BUT FAILED.
[2021-04-20 20:00] VITALS: BP 144/98
--- NOTE | 2021-04-20 20:30 | NUR ---
TRIED TO START PIV X1 BUT FAILED. CALLED NURSE ACCOUNTS RECEIVABLE CLERK IF SHE CAN START PIV BUT STILL BUSY AT THIS TIME, BUT SHE WILL COME SOON SHE WILL BE FREE.
[2021-04-20 21:30] VITALS: BP 152/102
--- NOTE | 2021-04-20 21:30 | NUR ---
PATIENT FEBRILE T 102.6 AX, CALLED DR. WALKER ABOUT PATIENT'S VITAL SIGNS T 102.6 AX BP 152/102 HR 125 RR 20 O2 99% RA AND PATIENT WASN'T ABLE TO GET HER MORNING ANTIBIOTICS BECAUSE THEY COULD NOT GET AN IV ACCESS AFTER SEVERAL ATTEMPTS. MD ORDERED TO GET AN IV ACCESS AND GIVE THE ROCEPHIN 1GM NOW AND ZITHROMAX 500MG NOW. ASKED IF NEED TO DO BLOOD CULTURES AND SAID NO NEED.
--- NOTE | 2021-04-20 22:00 | NUR ---
GARTH WILLETT CI TRIED TO START PIV X2 BUT FAILED. CALLED ER IF SOMEBODY CAN COME TO START AN IV AND SAID SOMEBODY WILL COME.
[2021-04-20] MEDS ORDERED: CefTRIAXone/D5W-Rocephin 1gm 50 ML IV ONE (22:40)
[2021-04-20] MEDS ORDERED: azithromycin/NS 500mg/250ml 250 ML IV ONE (22:40)
--- NOTE | 2021-04-20 23:30 | NUR ---
ER NURSE WAS ABLE TO START PIV TO LEFT UPPER ARM G20.
[2021-04-21] VITALS: BP 145/90
[2021-04-21 02:00] VITALS: BP 140/89
[2021-04-21] MEDS: ipratropium/albuterol 3ml nebule NEB SCH ×3 (03:00→11:18)
[2021-04-21 06:28] LABS: ALANINE AMINOTRANSFERASE 21 U/L (12-78); ALBUMIN 2.7 G/DL (3.4-5.0); ALBUMIN/GLOBULIN RATIO 0.6 (1.1-1.5); ALKALINE PHOSPHATASE 88 IU/L (46-116); ANION GAP 15 (8-16); ASPARTATE AMINO TRANSFERASE 26 U/L (10-37); BILIRUBIN,TOTAL 0.6 MG/DL (0.1-1.0); BLOOD UREA NITROGEN 15 MG/DL (7-18); BUN/CREATININE RATIO 24.6 (6.6-38.0); CALCIUM 8.3 MG/DL (8.5-10.1); CHLORIDE 94 MMOL/L (99-107); CREATININE 0.61 MG/DL (0.40-0.90); GLUCOSE 264 MG/DL (70-104); MAGNESIUM 2.5 MG/DL (1.5-2.4); SODIUM 127 MMOL/L (135-145); TOTAL CARBON DIOXIDE 18.5 MMOL/L (24-32); TOTAL PROTEIN 7.6 G/DL (6.4-8.2); eGFR > 90 ML/MIN
--- NOTE | 2021-04-21 06:30 | NUR ---
Problems reprioritized. Patient report given, questions answered & plan of care reviewed with BENIGNO WILLETT.
[2021-04-21 06:31] LABS: POTASSIUM 3.7 MMOL/L (3.5-5.1)
[2021-04-21 07:00] VITALS: BP 150/93
[2021-04-21] MEDS: lactobacillus rhamnosus 10,000 MMU CELLS/CAPSULE PO SCH (08:14)
[2021-04-21] MEDS: losartan 25mg tablet PO SCH (08:14)
[2021-04-21] MEDS: pantoprazole 40mg Tablet.DR PO SCH (08:14)
[2021-04-21] MEDS: docusate sod 100mg capsule PO SCH (08:15)
[2021-04-21] MEDS: methylPREDNISolone sod succ/PF 40mg inj. IV SCH (08:22)
[2021-04-21] MEDS: dextrose 5%-1/2 normal saline 1,000 ML IV SCH (08:23)
[2021-04-21] MEDS: azithromycin/NS 500mg/250ml 250 ML IV SCH (08:23)
[2021-04-21] MEDS: carVEDilol 3.125mg tablet PO SCH (08:23)
[2021-04-21] MEDS: heparin, porcine 5000 units/ml vial SQ SCH (08:23)
[2021-04-21] MEDS ORDERED: PERFLUTREN PROTEIN-A MICROSPHR (Optison) 0.22 MG/ML 3ML VIAL IV ONE (09:50)
[2021-04-21] MEDS: piperacillin/tazo 3.375gm/50ml 50 ML IV SCH ×2 (09:55→16:34)
[2021-04-21] MEDS ORDERED: vancomycin/NS 1 GM ADD-VANTAGE 250 ML X 1 DOSE IV ONE (10:00)
[2021-04-21 10:04] LABS: BASOPHILS # (AUTO) 0.1 X10'3 (0-0.2); BASOPHILS % (AUTO) 0.5 % (0-1); EOSINOPHILS % (AUTO) 0 % (0-6); HEMOGLOBIN 13.7 g/dl (12.0-16.0); LYMPHOCYTES # (AUTO) 1.6 X10'3 (1.1-4.8); LYMPHOCYTES % (AUTO) 5.8 % (21-51); MEAN CORPUSCULAR HEMOGLOBIN 23.4 PG (27.0-31.0); MEAN CORPUSCULAR HGB CONC 31.9 g/dL (33.0-36.5); MEAN CORPUSCULAR VOLUME 73.2 FL (78-98); MEAN PLATELET VOLUME 8.3 FL (7.4-10.4); MONOCYTES # (AUTO) 0.6 X10'3 (0-0.9); MONOCYTES % (AUTO) 2.2 % (2-12); NEUTROPHILS # (AUTO) 26.1 X10'3 (1.8-7.7); NEUTROPHILS % (AUTO) 91.5 % (42-75); PLATELET COUNT 592 X10'3 (140-440); RED BLOOD COUNT 5.87 X10'6 (4.20-5.60); RED CELL DISTRIBUTION WIDTH 15.9 % (11.5-14.5)
[2021-04-21 10:07] LABS: WHITE BLOOD COUNT 28.5 X10'3 (4.5-11.0)
[2021-04-21 10:41] LABS: TOTAL CELLS COUNTED 100
[2021-04-21 10:42] LABS: MICROCYTOSIS 1+
[2021-04-21 10:44] LABS: LARGE PLATELETS FEW
[2021-04-21 11:00] VITALS: BP 112/87
[2021-04-21 11:03] LABS: PLATELET ESTIMATE INCREASED
[2021-04-21 11:04] LABS: SMUDGE CELLS 1+
[2021-04-21 16:24] LABS: URINE AMPHETAMINE SCREEN NEGATIVE (Neg); URINE BARBITUATE SCREEN NEGATIVE (Neg); URINE BENZODIAZEPINES SCREEN NEGATIVE (Neg); URINE CANNABINOID SCREEN NEGATIVE (Neg); URINE COCAINE SCREEN NEGATIVE (Neg); URINE METHADONE SCREEN NEGATIVE (Neg); URINE OPIATE SCREEN NEGATIVE (Neg); URINE PHENCYCLIDINE SCREEN NEGATIVE (Neg)
--- NOTE | 2021-04-21 17:38 | NUR ---
PAGER ID: [phone] MESSAGE: Kirstin BlankB: patient found having seizure. no meds ordered. would you like anything given? thank you! [phone]
[2021-04-21] MEDS ORDERED: LORazepam 2 mg/ml vial IM PRN (17:45)
[2021-04-21] MEDS ORDERED: LORazepam 2 mg/ml vial IV ONE (17:45)
[2021-04-21] MEDS ORDERED: levetiracetam inj 1,000 MG in normal saline 100ml IV soln 90 ML IV SCH (19:00)
--- NOTE | 2021-04-21 19:00 | NUR ---
AT 1720, 1700 BLOOD SUGAR WAS TAKEN PATIENT WAS IN BED. AFTER I DISCUSSED WITH STUDENT ABOUT GETTING PATIENT TO A CHAIR FOR DINNER, HOPING THIS WOULD ENCOURAGE PATIENT TO EAT. AT APPROXIMATELY 1730 I WAS ALERTED THAT PATIENT WAS HAVING SEIZURE ACTIVITY, DESCRIBE BY STUDENTS: THEY STOOD PATIENT UP, PATIENT BECAME STIFF EYES ROLLED IN BACK AND THEY PLACED PATIENT ON BED ON PATIENT'S SIDE. WHEN I CAME INTO ROOM PATIENT WAS SHAKING. AT APPROXIMATELY 1738 DR WAS PAGED AND APPROXIMATELY 1740 DR CALLED AND I RECEIVED ORDERS. AT APPROXIMATELY 1745 A RAPID WAS CALLED AND AT 1750 A CODE BLUE WAS CALLED, PATIENT HAD LOST PULSE, WAS NOT BREATHING, CPR WAS STARTED, AT START OF CODE PATIENT VOMITED, PATIENT PRONOUNCED AT 1806 BY
[2021-04-21] MEDS ORDERED: vancomycin/NS 1 GM ADD-VANTAGE 250 ML X 1 DOSE IV SCH (23:00)
[2021-04-22] MEDS ORDERED: VANCOMYCIN LEVEL IV ONE (22:30)
== END 2021-04-21 18:06 | DRG 426 ==
LOC: ER 14:37 → ED HOLD 21:45 → EDBEDREQ 23:31 → SUR 3N 04-19 00:11
PROVIDERS: ADMIT Family Medicine; ATTEND Internal Medicine
PROC: 5A12012 Performance of Cardiac Output, Single, Manual (ICD-10-PCS; principal; 2021-04-21)
DX: E87.1 Hypo-osmolality and hyponatremia (principal); I50.33 Acute on chronic diastolic (congestive) heart failure; E87.2 Acidosis; M62.82 Rhabdomyolysis; J44.1 Chronic obstructive pulmonary disease with (acute) exacerbation; I46.9 Cardiac arrest, cause unspecified; I11.0 Hypertensive heart disease with heart failure; F17.210 Nicotine dependence, cigarettes, uncomplicated; Z20.822 Contact with and (suspected) exposure to COVID-19; K21.9 Gastro-esophageal reflux disease without esophagitis; F11.10 Opioid abuse, uncomplicated; F15.10 Other stimulant abuse, uncomplicated; E86.1 Hypovolemia; E11.65 Type 2 diabetes mellitus with hyperglycemia; N39.0 Urinary tract infection, site not specified; Z59.00 Homelessness unspecified; Z88.6 Allergy status to analgesic agent; Z87.440 Personal history of urinary (tract) infections; Z86.718 Personal history of other venous thrombosis and embolism; Z90.49 Acquired absence of other specified parts of digestive tract; Z86.14 Personal history of Methicillin resistant Staphylococcus aureus infection
CPT/HCPCS: 36415; 71045; 74176; 80053; 80061; 80305; 81001; 82550; 82948; 83036; 83605; 83690; 83735; 83880; 84100; 84145; 85007; 85008; 85025; 85379; 85610; 85730; 87040; 87081; 87088; 87635; 92950; 93005; 93306; 94640; 94760; 96360; 96361; 97110; 97161; 97530; 97535; 99285; C9803; G0378; J0456; J0696; J1644; J1815; J2543; J2920; J3370; J7030